=== PATIENT | female | born 1945 | race Caucasian/White ===

== ENCOUNTER 2021-04-07 15:42 | Inpatient (IN) ==
[2021-04-07] MEDS ORDERED: dexAMETHasone**PF** 10 MG/ML VIAL IV ONE (16:09)
--- NOTE | 2021-04-07 16:16 | Emergency Department Note ---
Impression & Plan 2019 novel coronavirus-infected pneumonia (NCIP), Hypoxia, Weakness, Chest pain ED Provider Note Provider: Jimbo Edward MD DATE OF SERVICE: 04/07/2021 CHIEF COMPLAINT: Covid, shortness of breath, weakness, chest pain HISTORY OF PRESENT ILLNESS: Patient is a 75-year-old female history of hyp ertension presenting via ambulance from her home today with report of increasing shortness of breath weakness and 3-4 out of 10 chest pain. Some weakness and shortness of breath symptoms started on April 04 she tested positive at urgent care for Covid. She is unvaccinated for Covid. Patient denies recent travel. She states she has had decreased appetite but has been doing fluids. Her friend she lives with has been well as he is vaccinated and giving her some [id number] medicines to try to help. She states has been increasingly weak and short of breath. Ambulance started her on oxygen given hypoxia noted for them. Patient is not normally on oxygen. No syncope or falls reported although patient states she felt a bit lightheaded particularly with movement. REVIEW OF SYSTEMS: A total of 10 review of systems was obtained and negative except as stated above in the HPI. PAST MEDICAL HISTORY: As noted above MEDICATIONS: Reviewed home medications SOCIAL HISTORY: Very distant former smoker PHYSICAL EXAM: GENERAL: alert and oriented in no acute distress seated in wheelchair appears fatigued Head: normocephalic and atraumatic EYES: No injection, discharge or icterus. NECK: Trachea midline. Supple. ENT: Mucous membranes pink and moist. LUNGS: Airway patent. No retractions however some tachypnea noted. Coarse breath sounds. HEART: Regular rate and rhythm. No chest wall tenderness ABDOMEN: Soft and non-tender, without guarding or rebound. SKIN: Acyanotic, warm, dry, without rashes EXTREMITIES: Without significant tenderness or deformity 1+ bilateral lower extr emity edema. NEUROLOGICAL: No focal deficits. No aphasia. No facial droop or slurred speech. EK bpm normal sinus rhythm with sinus arrhythmia. No PVC or PAC. No acute ST segment elevation. Some nonspecific inferior slight ST depression noted. QTc 435. CONTINUOUS CARDIAC MONITORING: was ordered and showed a heart rate of 70s-90s bpm in normal sinus rhythm Patient's laboratory studies and imaging reviewed. Differential includes Infection, dehydration, metabolic abnormality, hypo/hyperg lycemia, electrolyte disturbance, anemia, hypoxia, cardiac sources, intracerebral event, toxicologic, neurologic, as well as other pathologies. IMPRESSION/MEDICAL DECISION MAKING: Patient unvaccinated tested positive for Covid 3 days ago. Symptoms started 3 days ago now with worsening shortness of breath weakness and chest pain. New oxygen requirement. Feels lightheaded. Initially seen in [place] due to volume and acuity in emergency department secondary to the pandemic. Discussed with charge need for rapid placement given her oxygen requirements and fatigue. EKG without STEMI but some nonspecific lateral T wave changes. Doubt ACS question component of demand from her hypoxia. Chest x-ray if multifocal inflammatory changes consistent with viral pneumonia per radiology. Covid test is positive. No evidence of elevated troponin and the patient with minimal chest pain at this time. Patient is feeling somewhat cold and given blankets but is afebrile here. CRP significantly elevated consistent with inflammatory state from Covid. Again did receive dexamethasone given her hypoxia and the Covid. Creatinine of 1.47 unclear what her baseline is. Wish to avoid fluid overload given Covid stage so we will encourage oral hydration. Slight AST elevation consistent with viral Covid. Discussed with the patient hospitalist contacted for further care here at the hospital. DIAGNOSIS: COVID-19 pneumonia, hypoxia, chest pain DISPOSITION: Hospitalist will evaluate Patient was agreeable with this plan. 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 Beliefs That Will Affect Care: None Current Living Situation: Spouse Other Information That Helps Us Care for You: No Feels Safe at Home: Yes Safety Concerns: Feels Safe At This Time Assistive Devices: Denture - Upper, Denture - Lower and Glasses Allergies Allergies Allergy/AdvReac Type Severity Reaction Status Date / Time No Known Allergies Allergy Unverified 04/07/21 17:46 Home Meds Home Medications Medication Instructions Recorded Confirmed lisinopril 20 1 tab PO BID 04/07/21 04/07/21 mg-hydrochlorothiazide 12.5 mg tablet Results & Data (ED) Vital Signs Vital Signs - 24 hr 04/07/21 15:47 04/07/21 16:54 04/07/21 17:04 Temperature 36.5 C Temperature Source Temporal Artery Scan Pulse Rate 99 H 74 82 Pulse Rate [Left Radial] 74 Pulse Rate from SpO2 Sensor 82 Pulse Rhythm [Left Radial] Regular Pulse Strength [Left Radial] Normal Respiratory Rate 24 22 29 H Respiratory Effort / Characteristics Non-Labored Respiratory Depth Normal Respiratory Pattern Regular Blood Pressure 102/64 Blood Pressure [Left Arm] Blood Pressure Mean 76 Blood Pressure Mean [Left Arm] Blood Pressure Position [Left Arm] Pulse Oximetry 93 97 94 Oxygen Delivery Method Nasal Cannula Nasal Cannula Oxygen Flow Rate 3 4 Sepsis New/Unexplained Change in Mental Status No Sepsis Action Taken by Nursing No Action Required 04/07/21 17:10 04/07/21 17:20 04/07/21 17:30 Temperature Temperature Source Pulse Rate 85 78 81 Pulse Rate [Left Radial] Pulse Rate from SpO2 Sensor 85 80 83 Pulse Rhythm [Left Radial] Pulse Strength [Left Radial] Respiratory Rate 17 30 H 31 H Respiratory Effort / Characteristics Respiratory Depth Respiratory Pattern Blood Pressure Blood Pressure [Left Arm] Blood Pressure Mean Blood Pressure Mean [Left Arm] Blood Pressure Position [Left Arm] Pulse Oximetry 97 93 96 Oxygen Delivery Method Oxygen Flow Rate Sepsis New/Unexplained Change in Mental Status Sepsis Action Taken by Nursing 04/07/21 17:40 04/07/21 17:50 04/07/21 18:00 Temperature Temperature Source Pulse Rate 77 77 78 Pulse Rate [Left Radial] 63 Pulse Rate from SpO2 Sensor 78 77 78 Pulse Rhythm [Left Radial] Regular Pulse Strength [Left Radial] Normal Respiratory Rate 24 21 29 H Respiratory Effort / Characteristics Non-Labored Respiratory Depth Normal Respiratory Pattern Regular Blood Pressure Blood Pressure [Left Arm] 145/74 H Blood Pressure Mean Blood Pressure Mean [Left Arm] 97 Blood Pressure Position [Left Arm] Lying Pulse Oximetry 95 97 93 Oxygen Delivery Method Room Air Oxygen Flow Rate Sepsis New/Unexplained Change in Mental Status Sepsis Action Taken by Nursing Laboratory Data Result diagrams: 04/07/21 16:57 04/07/21 16:57 Lab Results 04/07/21 04/07/21 04/07/21 Range/Units 16:40 16:57 16:57 WBC 6.01 (4.8-10.8) K/uL RBC 4.76 (4.2-5.4) M/uL Hgb 14.9 (12.0-16.0) g/dL Hct 43.2 (37-47) % MCV 90.8 (80-100) fL MCH 31.3 (25-34) pg MCHC 34.5 (32-36) g/dL RDW Std Deviation 59.9 H (36.4-46.3) fL RDW Coeff of Marlene 17.7 H (11.5-14.5) % Plt Count 235 (130-400) K/uL MPV 10.7 H (7.4-10.4) fL Immature Gran % (Auto) 0.5 % Neut % (Auto) 85.3 % Lymph % (Auto) 8.0 % [place] % (Auto) 6.0 % Eos % (Auto) 0.0 % Baso % (Auto) 0.2 % Neut # (Auto) 5.13 (1.4-6.5) K/uL Lymph # (Auto) 0.48 L (1.2-3.4) K/uL [place] # (Auto) 0.36 (0.11-0.59) K/uL Eos # (Auto) 0.00 (0-0.5) K/uL Baso # (Auto) 0.01 (0-0.2) K/uL Immature Gran # (Auto) 0.03 H (0.00-0.02) K/uL PT 9.8 (9.0-12.0) Seconds INR 1.0 (0.9-1.1) Sodium (136-145) mmol/L Potassium (3.5-5.1) mmol/L Chloride (98-107) mmol/L Carbon Dioxide (21-32) mmol/L Anion Gap (3-11) BUN (7-18) mg/dl Creatinine (0.6-1.2) mg/dl Est Cr Clr Drug Dosing Est GFR ( Amer) ml/min Est GFR (Non-Af Amer) ml/min BUN/Creatinine Ratio (10-20) Glucose (70-99) mg/dl Calcium (8.5-10.1) mg/dl Total Bilirubin (0.2-1) mg/dl AST (15-37) U/L ALT (12-78) Alkaline Phosphatase (45-117) U/L Troponin I (0-0.045) ng/ml C-Reactive Protein (0-0.29) mg/dl Total Protein (6.4-8.2) gm/dl Albumin (3.4-5.0) gm/dl Globulin (2.5-4.0) gm/dl Albumin/Globulin Ratio (0.9-2) SARS-CoV-2, RNA, NAAT POSITIVE A* (NEGATIVE) 04/07/21 Range/Units 16:57 WBC (4.8-10.8) K/uL RBC (4.2-5.4) M/uL Hgb (12.0-16.0) g/dL Hct (37-47) % MCV (80-100) fL MCH (25-34) pg MCHC (32-36) g/dL RDW Std Deviation (36.4-46.3) fL RDW Coeff of Marlene (11.5-14.5) % Plt Count (130-400) K/uL MPV (7.4-10.4) fL Immature Gran % (Auto) % Neut % (Auto) % Lymph % (Auto) % [place] % (Auto) % Eos % (Auto) % Baso % (Auto) % Neut # (Auto) (1.4-6.5) K/uL Lymph # (Auto) (1.2-3.4) K/uL [place] # (Auto) (0.11-0.59) K/uL Eos # (Auto) (0-0.5) K/uL Baso # (Auto) (0-0.2) K/uL Immature Gran # (Auto) (0.00-0.02) K/uL PT (9.0-12.0) Seconds INR (0.9-1.1) Sodium 137 (136-145) mmol/L Potassium 3.6 (3.5-5.1) mmol/L Chloride 106 (98-107) mmol/L Carbon Dioxide 23 (21-32) mmol/L Anion Gap 8.0 (3-11) BUN 43 H (7-18) mg/dl Creatinine 1.47 H (0.6-1.2) mg/dl Est Cr Clr Drug Dosing Not Reportable Est GFR ( Amer) 40.3 ml/min Est GFR (Non-Af Amer) 34.8 ml/min BUN/Creatinine Ratio 29.5 H (10-20) Glucose 129 H (70-99) mg/dl Calcium 9.2 (8.5-10.1) mg/dl Total Bilirubin 0.6 (0.2-1) mg/dl AST 68 H (15-37) U/L ALT 36 (12-78) Alkaline Phosphatase 81 (45-117) U/L Troponin I < 0.015 (0-0.045) ng/ml C-Reactive Protein 21.60 H (0-0.29) mg/dl Total Protein 8.1 (6.4-8.2) gm/dl Albumin 2.9 L (3.4-5.0) gm/dl Globulin 5.2 H (2.5-4.0) gm/dl Albumin/Globulin Ratio 0.6 L (0.9-2) SARS-CoV-2, RNA, NAAT (NEGATIVE) Administered Medications Acetaminophen (Acetaminophen 325 Mg Tab) 650 mg PO Q4H PRN PRN Reason: Pain or Fever Stop: 05/07/21 21:06 Last Admin: 04/07/21 21:41 Dose: 650 mg Documented by: [id number] Heparin Sodium (Porcine) (Heparin Sod 5,000 Unit/0.5 Ml Vial) 5,000 units SQ Q8 SULEMA Stop: 05/07/21 21:59 Last Admin: 04/07/21 22:02 Dose: 5,000 units Documented by: [id number] Sodium Chloride (Nss 1000ml) 1,000 mls @ 100 mls/hr IV .Q10H SULEMA Stop: 05/07/21 21:06 Last Admin: 04/07/21 21:40 Dose: 100 mls/hr Documented by: [id number] Sodium Chloride (Sodium Chloride 0.9% 10ml Flush) 30 ml IV Q24H SULEMA Stop: 04/11/21 22:01 Last Admin: 04/07/21 21:40 Dose: 30 ml Documented by: [id number] Discontinued Medications Dexamethasone Sodium Phosphate (DexamethasonePf 10 Mg/Ml Vial) 6 mg IV NOW ONE Stop: 04/07/21 16:10 Last Admin: 04/07/21 16:59 Dose: 6 mg Documented by: [id number] Remdesivir 200 mg/ Sodium (Chloride) 250 mls @ 125 mls/hr IV ONE STA; Protocol Stop: 04/07/21 20:08 Last Infusion: 04/07/21 21:40 Dose: 0 mls/hr Documented by: [id number] Admin: 04/07/21 18:58 Dose: 125 mls/hr Documented by: [id number] Imaging Data Radiologist's Impression: Chest X-Ray 04/07/21 16:09 XR chest 1V portable HISTORY: 75 years-old Female Dyspnea, COVID, hypoxia acute shortness of breath with hypoxia COMPARISON: None TECHNIQUE: Portable AP view of the chest FINDINGS: Cardiac silhouette is enlarged. No pneumothorax or large pleural effusion. Mixed interstitial and alveolar opacities, left greater than right. Bones appear grossly intact. IMPRESSION: Multifocal bilateral airspace opacities are suggestive of viral pneumonia. ACT 112: Negative or not required by law. The above report was generated using voice recognition software. It may contain grammatical, syntax or spelling errors. Electronically signed by: Aashish Day M.D. 04/07/2021 4:51 PM Discharge Plan Visit Data Chief Complaint: Respiratory Problems Stated Complaint: SOB, HEADACHE, BODY ACHES, COVID + ED Provider: Jimbo Edward Discharge Problem: 2019 novel coronavirus-infected pneumonia (NCIP), Hypoxia, Weakness, Chest pain Patient Disposition: Admitted As Inpatient Discharge Instructions Interventions: ED Discharge Assessment Last Done: 04/07/21 20:14
--- NOTE | 2021-04-07 16:52 | XRay Report ---
XR chest 1V portable HISTORY: 75 years-old Female Dyspnea, COVID, hypoxia acute shortness of breath with hypoxia COMPARISON: None TECHNIQUE: Portable AP view of the chest FINDINGS: Cardiac silhouette is enlarged. No pneumothorax or large pleural effusion. Mixed interstitial and olvin eolar opacities, left greater than right. Bones appear grossly intact. IMPRESSION: Multifocal bilateral airspace opacities are suggestive of viral pneumonia. ACT 112: Negative or not required by law. The above report was generated using voice recognition software. It may contain grammatical, syntax o r spelling errors. Electronically signed by: Aashish Day M.D. 04/07/2021 4:51 PM
[2021-04-07 17:10] LABS: Prothrombin Time 9.8 Seconds (9.0-12.0)
[2021-04-07 17:19] LABS: Alanine Aminotransferase 36 (12-78); Albumin Level 2.9 gm/dl (3.4-5.0); Aspartate Aminotransferase 68 U/L (15-37); BUN Creatinine Ratio 29.5 (10-20); Blood Urea Nitrogen 43 mg/dl (7-18); Calcium 9.2 mg/dl (8.5-10.1); Carbon Dioxide 23 mmol/L (21-32); Chloride 106 mmol/L (98-107); Est GFR (African American) 40.3 ml/min; Est GFR (Non-African American) 34.8 ml/min; Glucose 129 mg/dl (70-99); Potassium 3.6 mmol/L (3.5-5.1); Sodium 137 mmol/L (136-145)
[2021-04-07 17:23] LABS: Hematocrit (blood only) 43.2 % (37-47); Hemoglobin 14.9 g/dL (12.0-16.0); Mean Corpuscular Hemoglobin 31.3 pg (25-34); Mean Corpuscular Hgb Conc 34.5 g/dL (32-36); Mean Corpuscular Volume 90.8 fL (80-100); Mean Platelet Volume 10.7 fL (7.4-10.4); Platelet Count 235 K/uL (130-400); RDW Coefficient of Variation 17.7 % (11.5-14.5); RDW Standard Deviation 59.9 fL (36.4-46.3); Red Blood Count 4.76 M/uL (4.2-5.4); White Blood Count 6.01 K/uL (4.8-10.8)
[2021-04-07 17:24] LABS: Basophils # (auto) 0.01 K/uL (0-0.2); Basophils % (auto) 0.2 %; Immature Granulocytes # (auto) 0.03 K/uL (0.00-0.02); Immature Granulocytes % (auto) 0.5 %; Lymphocytes # (auto) 0.48 K/uL (1.2-3.4); Monocytes # (auto) 0.36 K/uL (0.11-0.59); Neutrophils # (auto) 5.13 K/uL (1.4-6.5); Neutrophils % (auto) 85.3 %
[2021-04-07 17:27] LABS: Albumin Globulin Ratio 0.6 (0.9-2); Alkaline Phosphatase 81 U/L (45-117); Bilirubin,Total 0.6 mg/dl (0.2-1); Globulin 5.2 gm/dl (2.5-4.0); Total Protein 8.1 gm/dl (6.4-8.2); Troponin I < 0.015 ng/ml (0-0.045)
--- NOTE | 2021-04-07 18:06 | History & Physical Report ---
Date of Service April 07, 2021 Assessment & Plan (1) 2019 novel coronavirus-infected pneumonia (NCIP): Plan: Admit to Covid isolation unit Patient was given dexamethasone the emergency room, continued 6 mg IV daily As needed albuterol treatments If LFTs are normal, patient is a candidate for remdesivir will start loading dose today Continue O2 support as needed, currently on 4 L DVT prophylaxis with heparin Eventual PT/OT evaluation when better (2) HTN (hypertension): Plan: Blood pressure is low, will hold patient's Zestoretic for now. Can be restarted if patient's blood pressure worsens (3) LORI (acute kidney injury): Plan: Likely secondary to prerenal azotemia We will slowly hydrate with normal saline Patient is free to take p.o.'s as tolerated Off of CAYETANO inhibitor as noted above until renal function improves History of Present Illness Chief Complaint: weakness/SOB Primary Care Provider: Patricia Tony This is a 75-year-old female with past medical history of hypertension that presents today complaining weakness shortness of breath. Patient is a good historian but she appears very fatigued and a little short of breath which limits history. Patient tells me that on 04/04, she started having some flulike symptoms. These included generalized myalgias and weakness. She had little appetite. She did have some mild cough. Her daughter brought her to urgent care where she was found to be Covid positive. She tells me that no other treatment was prescribed and the patient stayed home over the next 2 days. Unfortunately, symptoms continue to worsen. This morning, she woke up and was extremely weak and had worsening shortness of breath. At that point EMS was called and the patient was brought to the emergency room for further evaluation. Patient is Covid positive here in the ER. She admits to me that she is unvaccinated. Recorded vital signs appear to be stable the patient is afebrile. She is noted to be 93% on 3L presentation. Patient is now being admitted for further treatment of Covid pneumonia. Allergies Allergy/AdvReac Type Severity Reaction Status Date / Time No Known Allergies Allergy Unverified 04/07/21 17:46 Home Medications Medication Instructions Recorded Confirmed Type lisinopril 20 1 tab PO BID 04/07/21 04/07/21 History mg-hydrochlorothiazide 12.5 mg tablet Past Med/Surg History Social History Smoking Status: Former smoker Preferred Language: Maldivian Feels Safe at Home: Yes Review of Systems Constitutional: + fever, + chills, + body aches, + fatigue, + malaise, + weakness and + anorexia; no weight loss and no weight gain Eyes: as per Subjective / HPI Respiratory: + cough and + chest congestion; no dyspnea and no dyspnea on exertion Cardiovascular: no chest pain, no orthopnea, no palpitations, no lightheadedness and no edema Gastrointestinal: no abdominal pain, no nausea, no vomiting, no constipation and no diarrhea/loose stools Genitourinary: no dysuria, no difficulty urinating, no urinary frequency, no urinary hesitancy, no urinary urgency and no flank pain Musculoskeletal: no back pain, no neck pain, no joint pain, no stiffness and no myalgia Integumentary: no rash Neurologic: no gait abnormality, no unsteadiness, no falls and no generalized weakness Physical Exam Constitutional: + ill appearing and cooperative; no acute distress Neck: trachea midline, no thyromegaly Respiratory: normal respiratory effort Auscultation: + diminished lung sounds; no crackles, no rales, no rhonchi and no wheezes Cardiovascular: Rate/Rhythm: regular rate and regular rhythm Heart Sounds: normal S1 and normal S2 Gastrointestinal (Abdomen): Inspection/Auscultation: abdomen normal to inspection Percussion/Palpation: abdomen soft; abdomen nontender, no guarding, abdomen not rigid and no hepatosplenomegaly Skin: no rashes, warm and dry Results & Data Results & Data ([facility]) Vital Signs (Past 12 Hours) Vital Signs Temp Pulse Pulse Resp BP Pulse Ox 04/07/21 16:54 74 74 22 97 04/07/21 15:47 36.5 C 99 H 24 102/64 93 Laboratory Results Laboratory Results WBC 6.01 K/uL (4.8-10.8) 04/07/21 16:57 RBC 4.76 M/uL (4.2-5.4) 04/07/21 16:57 Hgb 14.9 g/dL (12.0-16.0) 04/07/21 16:57 Hct 43.2 % (37-47) 04/07/21 16:57 MCV 90.8 fL (80-100) 04/07/21 16:57 MCH 31.3 pg (25-34) 04/07/21 16:57 MCHC 34.5 g/dL (32-36) 04/07/21 16:57 RDW Std Deviation 59.9 fL (36.4-46.3) H 04/07/21 16:57 RDW Coeff of Marlene 17.7 % (11.5-14.5) H 04/07/21 16:57 Plt Count 235 K/uL (130-400) 04/07/21 16:57 MPV 10.7 fL (7.4-10.4) H 04/07/21 16:57 Immature Gran % (Auto) 0.5 % 04/07/21 16:57 Neut % (Auto) 85.3 % 04/07/21 16:57 Lymph % (Auto) 8.0 % 04/07/21 16:57 [place] % (Auto) 6.0 % 04/07/21 16:57 Eos % (Auto) 0.0 % 04/07/21 16:57 Baso % (Auto) 0.2 % 04/07/21 16:57 Neut # (Auto) 5.13 K/uL (1.4-6.5) 04/07/21 16:57 Lymph # (Auto) 0.48 K/uL (1.2-3.4) L 04/07/21 16:57 [place] # (Auto) 0.36 K/uL (0.11-0.59) 04/07/21 16:57 Eos # (Auto) 0.00 K/uL (0-0.5) 04/07/21 16:57 Baso # (Auto) 0.01 K/uL (0-0.2) 04/07/21 16:57 Immature Gran # (Auto) 0.03 K/uL (0.00-0.02) H 04/07/21 16:57 PT 9.8 Seconds (9.0-12.0) 04/07/21 16:57 INR 1.0 (0.9-1.1) 04/07/21 16:57 Sodium 137 mmol/L (136-145) 04/07/21 16:57 Potassium 3.6 mmol/L (3.5-5.1) 04/07/21 16:57 Chloride 106 mmol/L (98-107) 04/07/21 16:57 Carbon Dioxide 23 mmol/L (21-32) 04/07/21 16:57 Anion Gap 8.0 (3-11) 04/07/21 16:57 BUN 43 mg/dl (7-18) H 04/07/21 16:57 Creatinine 1.47 mg/dl (0.6-1.2) H 04/07/21 16:57 Est Cr Clr Drug Dosing Not Reportable 04/07/21 16:57 Est GFR ( Amer) 40.3 ml/min 04/07/21 16:57 Est GFR (Non-Af Amer) 34.8 ml/min 04/07/21 16:57 BUN/Creatinine Ratio 29.5 (10-20) H 04/07/21 16:57 Glucose 129 mg/dl (70-99) H 04/07/21 16:57 Calcium 9.2 mg/dl (8.5-10.1) 04/07/21 16:57 Total Bilirubin 0.6 mg/dl (0.2-1) 04/07/21 16:57 AST 68 U/L (15-37) H 04/07/21 16:57 ALT 36 (12-78) 04/07/21 16:57 Alkaline Phosphatase 81 U/L (45-117) 04/07/21 16:57 Troponin I < 0.015 ng/ml (0-0.045) 04/07/21 16:57 C-Reactive Protein 21.60 mg/dl (0-0.29) H 04/07/21 16:57 Total Protein 8.1 gm/dl (6.4-8.2) 04/07/21 16:57 Albumin 2.9 gm/dl (3.4-5.0) L 04/07/21 16:57 Globulin 5.2 gm/dl (2.5-4.0) H 04/07/21 16:57 Albumin/Globulin Ratio 0.6 (0.9-2) L 04/07/21 16:57 SARS-CoV-2, RNA, NAAT POSITIVE (NEGATIVE) A* 04/07/21 16:40 Impressions Chest X-Ray 04/07/21 16:09 XR chest 1V portable HISTORY: 75 years-old Female Dyspnea, COVID, hypoxia acute shortness of breath with hypoxia COMPARISON: None TECHNIQUE: Portable AP view of the chest FINDINGS: Cardiac silhouette is enlarged. No pneumothorax or large pleural effusion. Mixed interstitial and alveolar opacities, left greater than right. Bones appear grossly intact. IMPRESSION: Multifocal bilateral airspace opacities are suggestive of viral pneumonia. ACT 112: Negative or not required by law. The above report was generated using voice recognition software. It may contain grammatical, syntax or spelling errors. Electronically signed by: Aashish Day M.D. 04/07/2021 4:51 PM PG Care Time/CCT Total # of Minutes Spent Total Time Spent with Patient: Total time spent is greater than 50% in coordination of care (as documented) at patient's floor/unit and/or counseling patient: Coding Level of Care Code 70801 Initial Inpt Care Lvl 3 Diagnoses 2019 novel coronavirus-infected pneumonia (NCIP) U07.1; J12.82 HTN (hypertension) I10 LORI (acute kidney injury) N17.9
[2021-04-07] MEDS ORDERED: REMDESIVIR 200 MG in SODIUM CHLORIDE 0.9% 210 ML IV STA (18:09)
[2021-04-07] MEDS ORDERED: ONDANSETRON INJ 2 MG/ML 2 ML VIAL IV PRN (21:07)
[2021-04-07] MEDS: SODIUM CHLORIDE 0.9% 1000ML 1,000 ML IV SCH (21:40)
[2021-04-07] MEDS: SODIUM CHLORIDE 0.9% 10ML FLUSH IV SCH (21:40)
[2021-04-07] MEDS: ACETAMINOPHEN 325 MG TAB PO PRN (21:41)
[2021-04-07] MEDS: HEPARIN SOD 5,000 UNIT/0.5 ML VIAL SQ SCH (22:02)
[2021-04-08 02:39] LABS: Appearance Urine Cloudy (Clear); Bilirubin Urine 1+ (Negative); Blood Urine 1+ (Negative); Color Urine Dark Yellow; Epithelial Cell Urine Auto 20-30 /lpf (0-5); Glucose Urine UA Negative (Negative); Ketones Urine Trace (Negative); Leukocyte Esterase Urine 2+ (Negative); Nitrite Urine Negative (Negative); Protein Urine 2+ (Negative); Specific Gravity Urine 1.025 (1.000-1.030); Urobilinogen Urine Negative (Negative); WBC Urine Automated >30 /hpf (0-5)
[2021-04-08 02:49] LABS: Bacteria Urine Automated 4+ (Negative)
[2021-04-08] MEDS: HEPARIN SOD 5,000 UNIT/0.5 ML VIAL SQ SCH ×3 (06:15→20:42)
[2021-04-08 07:00] LABS: Basophils # (auto) 0.01 K/uL (0-0.2); Basophils % (auto) 0.4 %; Hematocrit (blood only) 39.6 % (37-47); Hemoglobin 13.4 g/dL (12.0-16.0); Immature Granulocytes # (auto) 0.05 K/uL (0.00-0.02); Lymphocytes # (auto) 0.46 K/uL (1.2-3.4); Lymphocytes % (auto) 18.3 %; Mean Corpuscular Hemoglobin 30.6 pg (25-34); Mean Corpuscular Hgb Conc 33.8 g/dL (32-36); Mean Corpuscular Volume 90.4 fL (80-100); Mean Platelet Volume 10.5 fL (7.4-10.4); Monocytes # (auto) 0.17 K/uL (0.11-0.59); Monocytes % (auto) 6.8 %; Neutrophils # (auto) 1.82 K/uL (1.4-6.5); Neutrophils % (auto) 72.5 %; Platelet Count 199 K/uL (130-400); RDW Coefficient of Variation 17.9 % (11.5-14.5); RDW Standard Deviation 59.5 fL (36.4-46.3); Red Blood Count 4.38 M/uL (4.2-5.4); White Blood Count 2.51 K/uL (4.8-10.8)
[2021-04-08 07:23] LABS: Albumin Level 2.2 gm/dl (3.4-5.0); BUN Creatinine Ratio 36.1 (10-20); Calcium 8.5 mg/dl (8.5-10.1); Creatinine Clr Calc Pharmacy 47.5 ml/min; Magnesium 2.5 mg/dl (1.8-2.4); Potassium 3.5 mmol/L (3.5-5.1)
[2021-04-08 07:35] LABS: Albumin Globulin Ratio 0.5 (0.9-2); Bilirubin,Total 0.5 mg/dl (0.2-1); Globulin 4.5 gm/dl (2.5-4.0); Total Protein 6.7 gm/dl (6.4-8.2)
[2021-04-08] MEDS: dexAMETHasone 6 MG in SYRINGE 0 ML IV SCH (08:34)
[2021-04-08] MEDS: SODIUM CHLORIDE 0.9% 1000ML 1,000 ML IV SCH (09:22)
[2021-04-08] MEDS: cefTRIAXone SODIUM 2,000 MG in DEXTROSE 5% 50 ML IV SCH (10:25)
[2021-04-08] MEDS: FAMOTIDINE 20 MG TAB PO SCH ×2 (10:29→20:42)
[2021-04-08 15:36] LABS: C Reactive Protein 15.7 mg/dl (0-0.29)
[2021-04-08] MEDS ORDERED: MICONAZOLE NITRATE POWDER 43 GM EXT PRN (16:30)
--- NOTE | 2021-04-08 19:18 | Hospitalist Progress Note ---
Date of Service April 08, 2021 Assessment & Plan (1) 2019 novel coronavirus-infected pneumonia (NCIP): Plan: mod-severe disease, with marked elevation of CRP (>20) yesterday, and diffuse pneumonia clinically & radiographically. day #2 of IV dexamethasone 6mg daily. day #2 of 5 of Remdesivir. add flutter valve with incentive spirometry. side positioning and/or proning discussed with patient. I am concerned by her diffuse disease radiographically and the fact that she is only about 4 days into her illness. Has significant potential for worsening. I discussed with her that if she had escalating O2 requirements, and given her elevated CRP, she would be a candidate potentially for baricitinib treatment. I gave her the [facility] baricitinib handout in the event we need to initiate such. repeat labs including CRP in am. given her myalgias check a CPK in am. (2) Acute respiratory failure with hypoxia: Plan: 2nd COVID-19 pneumonia. see above in #1. stop fluids; maintain even I/O balance given her acute kidney injury, then ultimately net neg I/O balance once renal function normalizes. (3) HTN (hypertension): Plan: Holding CAYETANO-HCT combo pill given her LORI and recent low BP. If renal function improves and BPs rise then resume this medication. (4) LORI (acute kidney injury): Plan: Peak Cr 1.47. Now 1.2. Baseline 0.8/0.9. s/p IV fluids overnight. CAYETANO-HCT being held. stop fluids. bmp in am. cont to hold BP meds. (5) Morbid obesity with BMI of 40.0-44.9, adult: Plan: BMI 41 (6) Elevated AST (SGOT): Plan: 2nd COVID-19 infection. can't rule out rhabdomyolysis - thus, check CPK in am. repeat ast/alt in am. (7) Leukopenia: Plan: 2nd COVID-19 infection w/ resulting bone marrow suppression. trend cbc. (8) UTI (urinary tract infection): Plan: add rocephin 2gm IV daily. follow urine cx. (9) DVT prophylaxis: Plan: change heparin TID to lovenox 40mg BID. daughter Eun extensively updated by phone this evening Admission and Anticipated Discharge Date Admission Date: April 07, 2021 Subjective patient resting in bed upon my arrival easily awakens to her name being called she reports fatigue, weakness, cough, dyspnea on exertion, headache, and simply feeling poorly she had lost her taste/smell; taste modestly better today no fevers overnight denies chest pain Review of Systems Review of Systems: gen - no chills, appetite only slightly better today cv - no orthopnea pulm - no sputum production GI - no nausea or emesis; no abd pain Physical Exam Physical Exam: gen - obese, looks sickly, very tired, making a moaning sound periodically; attributes this to "a headache" mouth - MMM neck - no JVD heart - RRR, s1 s2, no murmur lungs - diffuse dry, fine rales b/l, extending more than 1/[address] up back; no increased work of breathing; occasional cough abd - soft NT ND BS+ ext - trace edema, pulses 2+ b/l psych - oriented x 3 skin - no rash Results & Data Results & Data ([facility]) Vital Signs (Past 12 Hours) Vital Signs Temp Pulse Resp BP Pulse Ox Pulse Ox Pulse Ox 04/08/21 19:14 36.6 C 75 20 137/75 96 04/08/21 15:00 36.8 C 83 18 149/79 H 94 04/08/21 11:30 36.7 C 66 20 135/67 90 04/08/21 11:24 88 L 90 04/08/21 09:26 90 04/08/21 07:44 36.8 C 69 24 132/78 94 Pulse Ox 04/08/21 19:14 04/08/21 15:00 04/08/21 11:30 04/08/21 11:24 78 L 04/08/21 09:26 04/08/21 07:44 Laboratory Results Laboratory Results - last 24 hr 04/08/21 04/08/21 04/08/21 02:20 06:26 06:26 WBC 2.51 L RBC 4.38 Hgb 13.4 Hct 39.6 MCV 90.4 MCH 30.6 MCHC 33.8 RDW Std Deviation 59.5 H RDW Coeff of Marlene 17.9 H Plt Count 199 MPV 10.5 H Immature Gran % (Auto) 2.0 Neut % (Auto) 72.5 Lymph % (Auto) 18.3 Coles % (Auto) 6.8 Eos % (Auto) 0.0 Baso % (Auto) 0.4 Neut # (Auto) 1.82 Lymph # (Auto) 0.46 L Coles # (Auto) 0.17 Eos # (Auto) 0.00 Baso # (Auto) 0.01 Immature Gran # (Auto) 0.05 H Sodium 140 Potassium 3.5 Chloride 110 H Carbon Dioxide 22 Anion Gap 8.0 BUN 44 H Creatinine 1.21 H Est Cr Clr Drug Dosing 47.5 Est GFR ( Amer) 51.0 Est GFR (Non-Af Amer) 44.0 BUN/Creatinine Ratio 36.1 H Glucose 128 H Calcium 8.5 Magnesium 2.5 H Total Bilirubin 0.5 AST 48 H ALT 29 Alkaline Phosphatase 67 C-Reactive Protein 15.70 H Total Protein 6.7 Albumin 2.2 L Globulin 4.5 H Albumin/Globulin Ratio 0.5 L Urine Color Dark Yellow Urine Appearance Cloudy A Urine pH 5.0 Ur Specific [place] 1.025 Urine Protein 2+ H Urine Glucose (UA) Negative Urine Ketones Trace H Urine Blood 1+ H Urine Nitrite Negative Urine Bilirubin 1+ H Urine Urobilinogen Negative Ur Leukocyte Esterase 2+ H Urine WBC (Auto) >30 H Urine RBC (Auto) 5-10 H U Hyaline Cast (Auto) 10-30 H U Epithel Cells (Auto) 20-30 H Urine Bacteria (Auto) 4+ H Granular Casts 5-10 H Urine Yeast Not Reportable PG Care Time/CCT Total # of Minutes Spent Total Time Spent with Patient: Total time spent is greater than 50% in coordination of care (as documented) at patient's floor/unit and/or counseling patient: Coding Level of Care Code 68659 Subseq Hosp Care Lvl 3 Diagnoses 2019 novel coronavirus-infected pneumonia (NCIP) U07.1; J12.82 HTN (hypertension) I10 LORI (acute kidney injury) N17.9 Acute respiratory failure with hypoxia J96.01 Morbid obesity with BMI of 40.0-44.9, adult E66.01; Z68.41 Leukopenia D72.819 UTI (urinary tract infection) N39.0 DVT prophylaxis Z29.9 Elevated AST (SGOT) R74.01
[2021-04-08] MEDS: REMDESIVIR 100 MG in SODIUM CHLORIDE 0.9% 230 ML IV SCH (19:46)
[2021-04-08] MEDS: SODIUM CHLORIDE 0.9% 10ML FLUSH IV SCH (20:52)
--- NOTE | 2021-04-08 21:34 | Electrocardiogram Report ---
Test Reason : Blood Pressure : / mmHG Vent. Rate : 087 BPM Atrial Rate : 087 BPM P-R Int : 146 ms QRS Dur : 074 ms QT Int : 362 ms P-R-T Axes : 033 -13 008 degrees QTc Int : 435 ms Normal sinus rhythm with sinus arrhythmia Nonspecific ST abnormality Abnormal ECG No previous ECGs available Confirmed by Dejuan Sexton ([id number]) on 04/08/2021 9:33:57 PM Referred By: REFERRED SELF Confirmed By:Dejuan Sexton
--- NOTE | 2021-04-08 21:36 | Electrocardiogram Report ---
Test Reason : Blood Pressure : / mmHG Vent. Rate : 085 BPM Atrial Rate : 085 BPM P-R Int : 138 ms QRS Dur : 072 ms QT Int : 374 ms P-R-T Axes : 015 -13 011 degrees QTc Int : 445 ms Normal sinus rhythm with sinus arrhythmia Nonspecific T wave abnormality When compared with ECG of 07-APR-2021 15:58, No significant change was found Confirmed by Dejuan Sexton ([id number]) on 04/08/2021 9:36:05 PM Referred By: REFERRED SELF Confirmed By:Dejuan Sexton
[2021-04-09 06:44] LABS: Hematocrit (blood only) 40.2 % (37-47); Hemoglobin 13.8 g/dL (12.0-16.0); Mean Corpuscular Hemoglobin 31.3 pg (25-34); Mean Corpuscular Hgb Conc 34.3 g/dL (32-36); Mean Corpuscular Volume 91.2 fL (80-100); Mean Platelet Volume 10.6 fL (7.4-10.4); Platelet Count 277 K/uL (130-400); RDW Coefficient of Variation 17.8 % (11.5-14.5); RDW Standard Deviation 60.6 fL (36.4-46.3); Red Blood Count 4.41 M/uL (4.2-5.4); White Blood Count 5.18 K/uL (4.8-10.8)
[2021-04-09 07:25] LABS: BUN Creatinine Ratio 34.3 (10-20); C Reactive Protein 9.23 mg/dl (0-0.29); Creatinine Clr Calc Pharmacy 48.7 ml/min; Est GFR (African American) 51.6 ml/min; Est GFR (Non-African American) 44.5 ml/min; Potassium 3.3 mmol/L (3.5-5.1)
[2021-04-09] MEDS: dexAMETHasone 6 MG in SYRINGE 0 ML IV SCH (08:21)
[2021-04-09] MEDS: ENOXAPARIN INJ 40 MG/0.4 ML SYR SQ SCH ×2 (08:21→20:42)
[2021-04-09] MEDS: FAMOTIDINE 20 MG TAB PO SCH ×2 (08:22→20:42)
[2021-04-09] MEDS: cefTRIAXone SODIUM 2,000 MG in DEXTROSE 5% 50 ML IV SCH (08:57)
[2021-04-09] MEDS ORDERED: BARICITINIB COMMUNICATION ONE (11:27)
[2021-04-09] MEDS: POTASSIUM CHLORIDE CRTAB 20 MEQ TABCR PO SCH ×2 (11:34→20:42)
--- NOTE | 2021-04-09 12:26 | Hospitalist Progress Note ---
Date of Service April 09, 2021 Assessment & Plan (1) 2019 novel coronavirus-infected pneumonia (NCIP): Plan: mod-severe disease, with marked elevation of CRP on admission and diffuse pneumonia radiographically. day #3 of IV dexamethasone 6mg daily. day #3 of 5 of Remdesivir. progressed to HFNC today, CRP is still high at 9, will add Baricitinib 2mg daily, day 1 add flutter valve with incentive spirometry. side positioning, place velásquez and give Lasix 20mg IV today she says she cannot lay prone CPK is only 143 this morning in regards to her myalgias (2) Acute respiratory failure with hypoxia: Plan: 2nd COVID-19 pneumonia. see above in #1. progressed to HFNC today, not surprised given the severity of her pneumonia discussed importance of proning as much as possible place velásquez and give lasix 20mg IV (3) HTN (hypertension): Plan: Holding CAYETANO-HCT combo pill given her LORI and recent low BP. BP remains low normal this morning (4) LORI (acute kidney injury): Plan: Peak Cr 1.47. Cr is 1.2 today, making urine, K is 3.3 LORI resolved (5) Morbid obesity with BMI of 40.0-44.9, adult: Plan: BMI 41 (6) Elevated AST (SGOT): Plan: 2nd COVID-19 infection. CPK normal (7) Leukopenia: Plan: 2nd COVID-19 infection w/ resulting bone marrow suppression. resolved, WBC is 5k (8) UTI (urinary tract infection): Plan: continue Rocephin 2gm IV daily. urine cx growing 100k GN bacilli (9) Hypokalemia: Plan: 3.3, add 20mEq BID, repeat BMP in AM (10) DVT prophylaxis: Plan: lovenox 40mg BID. Admission and Anticipated Discharge Date Admission Date: April 07, 2021 Subjective patient placed on HFNC this morning, 40L 100%, she failed oxy mask she has pursed lip breathing, tachypneic reviewed chart and reviewed labs, she is early in her illness, only day 5 according to start of symptoms K is 3.3, Cr 1.2, CRP coming down but still high at 9 discussed importance of laying prone, says she cannot do that at all, encouraged her to lay on her side then will place velásquez, give Lasix 20mg IV she is eating a little better, drinking fluids Review of Systems Review of Systems: All systems reviewed & are unremarkable except as noted in Subjective Constitutional: + fatigue and + weakness; no fever, no chills and no sweats Respiratory: + cough, + dyspnea and + dyspnea on exertion; no pain with cough and no sputum production Cardiovascular: no chest pain Gastrointestinal: no abdominal pain, no nausea, no vomiting, no constipation and no diarrhea/loose stools Physical Exam Physical Exam: General: well developed, obese female, ill appearing, mild distress Neck: supple, trachea midline, normal thyroid Lungs: clear to auscultation bilaterally, + tachypnea, + pursed lip breathing, + accessory muscle use, cannot speak in full sentences Heart: regular S1 and S2, no murmur, peripheral pulses normal, capillary refill normal, no edema Abdomen: soft, NT, ND, + BS, no hepatomegaly, normal to percussion Extremities: normal in appearance, no cyanosis, no petechiae, strength is 5/5 bilaterally Neuro: awake, cooperative, moves all extremities, no focal motor deficits, CN II-XII intact, sensation in extremities intact, normal speech Skin: warm, dry, no rash, normal turgor Psych: Awake, alert oriented x 3, euthymic affect Results & Data Results & Data ([facility]) Vital Signs (Past 12 Hours) Vital Signs Temp Pulse Pulse Resp BP BP Pulse Ox 04/09/21 10:57 36.9 C 71 20 118/74 98 04/09/21 10:06 69 22 96 04/09/21 07:24 36.9 C 78 20 166/82 H 96 04/09/21 07:00 73 04/09/21 03:29 71 04/09/21 03:09 36.9 C 76 20 141/96 H 94 Laboratory Results Laboratory Results - last 24 hr 04/08/21 04/09/21 04/09/21 06:26 06:21 06:21 WBC 5.18 RBC 4.41 Hgb 13.8 Hct 40.2 MCV 91.2 MCH 31.3 MCHC 34.3 RDW Std Deviation 60.6 H RDW Coeff of Marlene 17.8 H Plt Count 277 MPV 10.6 H Sodium 142 Potassium 3.3 L Chloride 111 H Carbon Dioxide 23 Anion Gap 8.0 BUN 41 H Creatinine 1.20 Est Cr Clr Drug Dosing 48.7 Est GFR ( Amer) 51.6 Est GFR (Non-Af Amer) 44.5 BUN/Creatinine Ratio 34.3 H Glucose 130 H Calcium 9.0 AST 44 H ALT 29 Total Creatine Kinase 143 C-Reactive Protein 15.70 H 9.23 H Medications Administered Current Inpatient Medications Acetaminophen (Acetaminophen 325 Mg Tab) 650 mg PO Q4H PRN PRN Reason: Pain or Fever Stop: 05/07/21 21:06 Last Admin: 04/07/21 21:41 Dose: 650 mg Documented by: Baricitinib (2mg Daily X 14 Days (Egfr 30-59 Ml/Min/1.73m2)) 2 mg PO DAILY [facility]; Protocol Stop: 04/23/21 11:59 Enoxaparin Sodium (Enoxaparin Inj 40 Mg/0.4 Ml Syr) 40 mg SQ BID [facility] Stop: 05/09/21 08:59 Last Admin: 04/09/21 08:21 Dose: 40 mg Documented by: Famotidine (Famotidine 20 Mg Tab) 20 mg PO BID [facility] Stop: 05/08/21 09:44 Last Admin: 04/09/21 08:22 Dose: 20 mg Documented by: Dexamethasone 6 mg/ Syringe 1.5 mls @ 1 mls/min IV DAILY [facility] Stop: 04/18/21 08:59 Last Admin: 04/09/21 08:21 Dose: 1 mls/min Documented by: Remdesivir 100 mg/ Sodium (Chloride) 250 mls @ 250 mls/hr IV Q24H [facility]; Protocol Stop: 04/11/21 20:59 Last Infusion: 04/08/21 20:52 Dose: Infused Documented by: Ceftriaxone Sodium 2,000 mg/ (Dextrose) 70 mls @ 100 mls/hr IV DAILY [facility]; Protocol Stop: 04/13/21 09:44 Last Infusion: 04/09/21 09:39 Dose: Infused Documented by: Miconazole Nitrate (Miconazole Nitrate Powder 43 Gm) 1 appln EXT BID PRN PRN Reason: Affected Skin Folds Stop: 05/08/21 16:29 Ondansetron HCl (Ondansetron Inj 2 Mg/Ml 2 Ml Vial) 4 mg IV Q6H PRN PRN Reason: Nausea Stop: 05/07/21 21:06 Potassium Chloride (Potassium Chloride Crtab 20 Meq Tabcr) 20 meq PO BID [facility] Stop: 05/09/21 11:29 Last Admin: 04/09/21 11:34 Dose: 20 meq Documented by: Sodium Chloride (Sodium Chloride 0.9% 10ml Flush) 30 ml IV Q24H [facility] Stop: 04/11/21 22:01 Last Admin: 04/08/21 20:52 Dose: 30 ml Documented by: PG Care Time/CCT Total # of Minutes Spent Total Time Spent with Patient: Total time spent is greater than 50% in coordination of care (as documented) at patient's floor/unit and/or counseling patient: Coding Level of Care Code 84898 Subseq Hosp Care Lvl 3 Diagnoses 2019 novel coronavirus-infected pneumonia (NCIP) U07.1; J12.82 Acute respiratory failure with hypoxia J96.01 HTN (hypertension) I10 LORI (acute kidney injury) N17.9 Morbid obesity with BMI of 40.0-44.9, adult E66.01; Z68.41 Elevated AST (SGOT) R74.01 Leukopenia D72.819 UTI (urinary tract infection) N39.0 DVT prophylaxis Z29.9 Hypokalemia E87.6
[2021-04-09] MEDS ORDERED: FUROSEMIDE INJ 20 MG/2 ML VIAL IV ONE (12:39)
[2021-04-09] MEDS ORDERED: guaiFENesin/CODEINE 100MG/10MG 5ML UDC PO PRN (12:40)
[2021-04-09] MEDS: 2mg Daily x 14 days (eGFR 30-59 mL/min/1.73m2) PO SCH (13:17)
[2021-04-09] MEDS: SODIUM CHLORIDE 0.9% 10ML FLUSH IV SCH (23:30)
[2021-04-09] MEDS: REMDESIVIR 100 MG in SODIUM CHLORIDE 0.9% 230 ML IV SCH (23:30)
[2021-04-10 07:40] LABS: BUN Creatinine Ratio 38.6 (10-20); Calcium 8.5 mg/dl (8.5-10.1); Creatinine Clr Calc Pharmacy 54.4 ml/min; Est GFR (African American) 58.6 ml/min; Est GFR (Non-African American) 50.5 ml/min; Magnesium 2.3 mg/dl (1.8-2.4); Potassium 4.1 mmol/L (3.5-5.1)
[2021-04-10 07:45] LABS: C Reactive Protein 4.22 mg/dl (0-0.29)
[2021-04-10] MEDS: dexAMETHasone 6 MG in SYRINGE 0 ML IV SCH (08:17)
[2021-04-10] MEDS: ENOXAPARIN INJ 40 MG/0.4 ML SYR SQ SCH ×2 (08:19→21:50)
[2021-04-10] MEDS: FAMOTIDINE 20 MG TAB PO SCH ×2 (08:19→21:50)
[2021-04-10] MEDS: POTASSIUM CHLORIDE CRTAB 20 MEQ TABCR PO SCH (08:19)
[2021-04-10] MEDS: 2mg Daily x 14 days (eGFR 30-59 mL/min/1.73m2) PO SCH (08:26)
[2021-04-10] MEDS: cefTRIAXone SODIUM 2,000 MG in DEXTROSE 5% 50 ML IV SCH (08:30)
[2021-04-10] MEDS ORDERED: FUROSEMIDE INJ 20 MG/2 ML VIAL IV ONE (10:20)
--- NOTE | 2021-04-10 10:20 | Hospitalist Progress Note ---
Date of Service April 10, 2021 Assessment & Plan (1) 2019 novel coronavirus-infected pneumonia (NCIP): Plan: mod-severe disease, with marked elevation of CRP on admission and diffuse pneumonia radiographically. day #4 of IV dexamethasone 6mg daily. day #4 of 5 of Remdesivir. added Baricitinib 2mg daily, day 2 today progressed to HFNC on 04/09/21 CRP coming down to 4 from 9 add flutter valve with incentive spirometry. side positioning, Lasix 20mg IV daily, good response and Cr stable she says she cannot lay prone (2) Acute respiratory failure with hypoxia: Plan: 2nd COVID-19 pneumonia. see above in #1. progressed to HFNC on 04/09/21, not surprised given the severity of her pneumonia discussed importance of proning as much as possible place velásquez and give lasix 20mg IV daily (3) HTN (hypertension): Plan: Holding CAYETANO-HCT combo pill given her LORI and recent low BP. BP remains low normal this morning (4) LORI (acute kidney injury): Plan: Peak Cr 1.47. Cr down to 1.0 today from 1.2, K stable at 4.1 LORI resolved (5) Morbid obesity with BMI of 40.0-44.9, adult: Plan: BMI 41 (6) Elevated AST (SGOT): Plan: 2nd COVID-19 infection. CPK normal (7) Leukopenia: Plan: 2nd COVID-19 infection w/ resulting bone marrow suppression. resolved (8) UTI (urinary tract infection): Plan: continue Rocephin 2gm IV daily. urine cx growing E coli that is sensitive to Rocephin 5-7 days total (9) Hypokalemia: Plan: 4.1, stop PO replacement for now (10) DVT prophylaxis: Plan: lovenox 40mg BID. Admission and Anticipated Discharge Date Admission Date: April 07, 2021 Subjective patient says she feels better today, she is still on 40L 100% but breathing easier eating better she complains that her nose is dry, sore, no bleeding CRP down to 4 from 9, Cr is stable no fever, no chest pain, nausea encouraged her to stay strong, will try to titrate down on oxygen requirements Review of Systems Review of Systems: All systems reviewed & are unremarkable except as noted in Subjective Respiratory: + cough, + dyspnea and + dyspnea on exertion Physical Exam Physical Exam: General: well developed, obese female, ill appearing, mild distress Neck: supple, trachea midline, normal thyroid Lungs: clear to auscultation bilaterally, + tachypnea, + pursed lip breathing, + accessory muscle use, cannot speak in full sentences Heart: regular S1 and S2, no murmur, peripheral pulses normal, capillary refill normal, no edema Abdomen: soft, NT, ND, + BS, no hepatomegaly, normal to percussion Extremities: normal in appearance, no cyanosis, no petechiae, strength is 5/5 bilaterally Neuro: awake, cooperative, moves all extremities, no focal motor deficits, CN II-XII intact, sensation in extremities intact, normal speech Skin: warm, dry, no rash, normal turgor Psych: Awake, alert oriented x 3, euthymic affect Results & Data Results & Data ([facility]) Vital Signs (Past 12 Hours) Vital Signs Temp Pulse Pulse Resp BP Pulse Ox 04/10/21 07:08 36.5 C 53 L 20 134/72 95 04/10/21 06:25 58 L 20 91 04/10/21 03:38 36.5 C 63 18 149/94 H 91 04/10/21 03:14 80 22 92 04/09/21 23:11 37.0 C 58 L 20 136/67 93 04/09/21 22:47 60 28 H 92 04/09/21 22:20 47 L Laboratory Results Laboratory Results - last 24 hr 04/10/21 05:49 Sodium 142 Potassium 4.1 D Chloride 112 H Carbon Dioxide 24 Anion Gap 6.0 BUN 42 H Creatinine 1.08 Est Cr Clr Drug Dosing 54.4 Est GFR ( Amer) 58.6 Est GFR (Non-Af Amer) 50.5 BUN/Creatinine Ratio 38.6 H Glucose 117 H Calcium 8.5 Magnesium 2.3 C-Reactive Protein 4.22 H Medications Administered Current Inpatient Medications Acetaminophen (Acetaminophen 325 Mg Tab) 650 mg PO Q4H PRN PRN Reason: Pain or Fever Stop: 05/07/21 21:06 Last Admin: 04/07/21 21:41 Dose: 650 mg Documented by: Baricitinib (2mg Daily X 14 Days (Egfr 30-59 Ml/Min/1.73m2)) 2 mg PO DAILY [facility]; Protocol Stop: 04/23/21 11:59 Last Admin: 04/10/21 08:26 Dose: 2 mg Documented by: Enoxaparin Sodium (Enoxaparin Inj 40 Mg/0.4 Ml Syr) 40 mg SQ BID [facility] Stop: 05/09/21 08:59 Last Admin: 04/10/21 08:19 Dose: 40 mg Documented by: Famotidine (Famotidine 20 Mg Tab) 20 mg PO BID [facility] Stop: 05/08/21 09:44 Last Admin: 04/10/21 08:19 Dose: 20 mg Documented by: Guaifenesin/Codeine Phosphate (Guaifenesin/Codeine 100mg/10mg 5ml Udc) 5 ml PO Q6H PRN PRN Reason: Cough Stop: 05/09/21 12:39 Dexamethasone 6 mg/ Syringe 1.5 mls @ 1 mls/min IV DAILY [facility] Stop: 04/18/21 08:59 Last Admin: 04/10/21 08:17 Dose: 1 mls/min Documented by: Remdesivir 100 mg/ Sodium (Chloride) 250 mls @ 250 mls/hr IV Q24H [facility]; Protocol Stop: 04/11/21 20:59 Last Infusion: 04/10/21 00:30 Dose: Infused Documented by: Ceftriaxone Sodium 2,000 mg/ (Dextrose) 70 mls @ 100 mls/hr IV DAILY [facility]; Protocol Stop: 04/13/21 09:44 Last Infusion: 04/09/21 09:39 Dose: Infused Documented by: Miconazole Nitrate (Miconazole Nitrate Powder 43 Gm) 1 appln EXT BID PRN PRN Reason: Affected Skin Folds Stop: 05/08/21 16:29 Ondansetron HCl (Ondansetron Inj 2 Mg/Ml 2 Ml Vial) 4 mg IV Q6H PRN PRN Reason: Nausea Stop: 05/07/21 21:06 Potassium Chloride (Potassium Chloride Crtab 20 Meq Tabcr) 20 meq PO BID [facility] Stop: 05/09/21 11:29 Last Admin: 04/10/21 08:19 Dose: 20 meq Documented by: Sodium Chloride (Sodium Chloride 0.9% 10ml Flush) 30 ml IV Q24H [facility] Stop: 04/11/21 22:01 Last Admin: 04/09/21 23:30 Dose: 30 ml Documented by: PG Care Time/CCT Total # of Minutes Spent Total Time Spent with Patient: Total time spent is greater than 50% in coordination of care (as documented) at patient's floor/unit and/or counseling patient: Coding Level of Care Code 44479 Subseq Hosp Care Lvl 3 Diagnoses 2019 novel coronavirus-infected pneumonia (NCIP) U07.1; J12.82 Acute respiratory failure with hypoxia J96.01 HTN (hypertension) I10 LORI (acute kidney injury) N17.9 Morbid obesity with BMI of 40.0-44.9, adult E66.01; Z68.41 Elevated AST (SGOT) R74.01 Leukopenia D72.819 UTI (urinary tract infection) N39.0 Hypokalemia E87.6 DVT prophylaxis Z29.9
[2021-04-10] MEDS ORDERED: SODIUM CHLORIDE 0.65% NA SOLN 45 ML (OCEAN) PRN (10:23)
[2021-04-10] MEDS: MUPIROCIN 2% OINT 22 GM TUBE EXT SCH ×2 (11:12→21:51)
--- NOTE | 2021-04-10 12:13 | XRay Report ---
XR chest 1V portable CLINICAL HISTORY: covid, hypoxia TECHNIQUE: Single frontal radiograph of the chest was obtained. Comparison: Comparison is made to chest one view 04/07/2021 FINDINGS: No lines and tubes are seen. The cardiomediastinal silhouette is normal. Multifocal airspace opacitie s are seen. No evidence of pleural effusion or pneumothorax. IMPRESSION: Multifocal airspace opacities may represent atelectasis, pneumonia, and/or aspiration. ACT 112: Negative or not required by law. Electronically signed by: Heriberto Camilo M.D. 04/10/2021 12:12 PM
[2021-04-10] MEDS: REMDESIVIR 100 MG in SODIUM CHLORIDE 0.9% 230 ML IV SCH (21:07)
[2021-04-10] MEDS: SODIUM CHLORIDE 0.9% 10ML FLUSH IV SCH (22:55)
[2021-04-11] MEDS ORDERED: FUROSEMIDE INJ 20 MG/2 ML VIAL IV SCH (09:00)
[2021-04-11] MEDS: cefTRIAXone SODIUM 2,000 MG in DEXTROSE 5% 50 ML IV SCH (09:42)
[2021-04-11] MEDS: dexAMETHasone 6 MG in SYRINGE 0 ML IV SCH (09:42)
[2021-04-11] MEDS: MUPIROCIN 2% OINT 22 GM TUBE EXT SCH ×2 (09:43→21:09)
[2021-04-11] MEDS: ENOXAPARIN INJ 40 MG/0.4 ML SYR SQ SCH ×2 (09:43→21:08)
[2021-04-11] MEDS: FAMOTIDINE 20 MG TAB PO SCH ×2 (09:43→21:08)
[2021-04-11] MEDS: 2mg Daily x 14 days (eGFR 30-59 mL/min/1.73m2) PO SCH (09:58)
[2021-04-11 10:18] LABS: Calcium 8.7 mg/dl (8.5-10.1); Creatinine Clr Calc Pharmacy 61.4 ml/min; Est GFR (African American) 67.5 ml/min; Est GFR (Non-African American) 58.3 ml/min
[2021-04-11] MEDS: REMDESIVIR 100 MG in SODIUM CHLORIDE 0.9% 230 ML IV SCH (19:32)
--- NOTE | 2021-04-11 20:58 | Hospitalist Progress Note ---
Date of Service April 11, 2021 Assessment & Plan (1) 2019 novel coronavirus-infected pneumonia (NCIP): Plan: severe disease, with marked elevation of CRP (>20) early in admission, and diffuse pneumonia clinically & radiographically. progressed from NC O2 up to large quantities of high-flow NC. at rest she is comfortable, fortunately, without distress. day #5 of IV dexamethasone 6mg daily. day #5 of 5 of Remdesivir. Cont flutter valve with incentive spirometry. The flutter valve was sitting in a bucket near the window - I had her do it to ensure good technique which she does. side positioning encouraged. She will not prone. Was a candidate for baricitinib treatment - day #3 of such. Using 2mg due to GFR <60. DVT proph - lovenox 40mg BID. (2) Acute respiratory failure with hypoxia: Plan: 2nd COVID-19 pneumonia. see above in #1. cont lasix IV to maintain net negative I/O balance. BMP am. wean FiO2 as tolerated. (3) HTN (hypertension): Plan: Holding CAYETANO-HCT combo pill given her LORI. If renal function improves and BPs rise then resume this medication. (4) LORI (acute kidney injury): Plan: Peak Cr 1.47. Now 0.9. Baseline 0.8/0.9. CAYETANO-HCTZ still being held. daily BMP. (5) Morbid obesity with BMI of 40.0-44.9, adult: Plan: BMI 41-42 (6) Elevated AST (SGOT): Plan: 2nd COVID-19 infection. repeat AST in am. recent CPK wnl. (7) Leukopenia: Plan: 2nd COVID-19 infection w/ resulting bone marrow suppression. resolved. (8) UTI (urinary tract infection): Plan: rocephin 2gm IV daily. 2nd to e.coli. can d/c rocephin, change to augmentin to complete course. (9) DVT prophylaxis: Plan: cont lovenox 40mg BID. daughter Eun extensively updated by phone this evening will ultimately need PT/OT when she can tolerate such Admission and Anticipated Discharge Date Admission Date: April 07, 2021 Subjective pt watching [employer] football upon arrival patient said very little today she c/o cough she c/o SAMANIEGO with minimal activity eating fine no chest pain no abd pain nursing reports that when she ambulated from the bed to the commode today she dropped her O2 sats to the 70s promptly she is not proning reports she can't lay on left hip due to pain tele overnight wnl Review of Systems Review of Systems: gen - no fevers or chills; weakness present CV - no chest pain; mild orthopnea pulm - minimal sputum GI - no N/V Physical Exam Physical Exam: gen - obese, NAD, no respiratory distress mouth - MMM neck - no JVD heart - RRR, s1 s2, no murmur lungs - dry, fine rales b/l - less than the last time I examined her; better airation than my previous exam; no wheeze abd - soft NT ND BS+ ext - trace-1+ edema, pulses 2+ b/l psych - oriented x 3 skin - no rash Results & Data Results & Data ([facility]) Vital Signs (Past 12 Hours) Vital Signs Temp Pulse Pulse Resp BP BP Pulse Ox 04/11/21 19:18 65 21 91 04/11/21 19:09 36.5 C 69 20 156/89 H 94 04/11/21 15:15 37.0 C 89 20 121/73 92 04/11/21 15:10 70 20 91 04/11/21 14:15 81 04/11/21 11:33 70 20 91 04/11/21 11:16 36.8 C 82 22 139/78 88 L Laboratory Results Laboratory Results - last 24 hr 04/11/21 04/11/21 04/11/21 09:03 11:05 18:40 Sodium 141 Potassium 3.8 Chloride 112 H Carbon Dioxide 24 Anion Gap 5.0 BUN 38 H Creatinine 0.96 Est Cr Clr Drug Dosing 61.4 Est GFR ( Amer) 67.5 Est GFR (Non-Af Amer) 58.3 BUN/Creatinine Ratio 39.0 H Glucose 86 Calcium 8.7 Stool Occult Bld Scrn Negative PG Care Time/CCT Total # of Minutes Spent Total Time Spent with Patient: Total time spent is greater than 50% in coordination of care (as documented) at patient's floor/unit and/or counseling patient: Coding Level of Care Code 42555 Subseq Hosp Care Lvl 3 Diagnoses 2019 novel coronavirus-infected pneumonia (NCIP) U07.1; J12.82 Acute respiratory failure with hypoxia J96.01 HTN (hypertension) I10 LORI (acute kidney injury) N17.9 Morbid obesity with BMI of 40.0-44.9, adult E66.01; Z68.41 Elevated AST (SGOT) R74.01 Leukopenia D72.819 UTI (urinary tract infection) N39.0 DVT prophylaxis Z29.9
[2021-04-11] MEDS: SODIUM CHLORIDE 0.9% 10ML FLUSH IV SCH (21:36)
[2021-04-12 07:03] LABS: Hematocrit (blood only) 40.2 % (37-47); Mean Corpuscular Hgb Conc 34.8 g/dL (32-36); Mean Corpuscular Volume 91.8 fL (80-100); Mean Platelet Volume 11.5 fL (7.4-10.4); Platelet Count 295 K/uL (130-400); RDW Coefficient of Variation 16.9 % (11.5-14.5); RDW Standard Deviation 56.6 fL (36.4-46.3); Red Blood Count 4.38 M/uL (4.2-5.4); White Blood Count 6.96 K/uL (4.8-10.8)
[2021-04-12 07:26] LABS: BUN Creatinine Ratio 31.8 (10-20); Calcium 8.5 mg/dl (8.5-10.1); Creatinine Clr Calc Pharmacy 63.2 ml/min; Est GFR (African American) 70.2 ml/min; Est GFR (Non-African American) 60.5 ml/min; Potassium 3.9 mmol/L (3.5-5.1)
[2021-04-12] MEDS: AMOXICILLIN/CLAVULANATE 875 MG TAB PO SCH ×2 (09:40→16:33)
[2021-04-12] MEDS: FUROSEMIDE 40 MG/4 ML VIAL IV SCH (09:41)
[2021-04-12] MEDS: FAMOTIDINE 20 MG TAB PO SCH ×2 (09:41→20:49)
[2021-04-12] MEDS: ENOXAPARIN INJ 40 MG/0.4 ML SYR SQ SCH ×2 (09:41→20:48)
[2021-04-12] MEDS: dexAMETHasone 6 MG in SYRINGE 0 ML IV SCH (09:41)
[2021-04-12] MEDS: MUPIROCIN 2% OINT 22 GM TUBE EXT SCH ×2 (09:42→20:47)
[2021-04-12] MEDS: 2mg Daily x 14 days (eGFR 30-59 mL/min/1.73m2) PO SCH (09:46)
[2021-04-12] MEDS: ADVANCED PROBIOTIC 1250 MG CAPSULE PO SCH (09:46)
[2021-04-12] MEDS: DICLOFENAC SOD 1% GEL 100 GM TUBE EXT SCH ×4 (09:47→20:47)
--- NOTE | 2021-04-12 11:28 | Hospitalist Progress Note ---
Date of Service April 12, 2021 Assessment & Plan (1) Acute respiratory failure with hypoxia: Plan: 2nd COVID-19 pneumonia. Likely has element of acute diastolic CHF. Cannot rule out early ARDS. Continue IV dexamethasone for COVID-19. Continue baricitinib. Increase lasix to 40mg IV daily. Consider echo. Leave on BIPAP; consider using it regularly at HS. Then try to back down again to HFNC. Given her clinical worsening will Tx to 2 [facility] unit. Finally, d-dimer is elevated. Too ill to do CTA chest. Will obtain dopplers, r/o DVT. Dimer elevation may simply be acute phase reactant due to her illness. (2) 2019 novel coronavirus-infected pneumonia (NCIP): Plan: severe disease, with marked elevation of CRP (>20) early in admission, and diffuse pneumonia clinically & radiographically. progressed from NC O2 up to large quantities of high-flow NC. worsened this am and despite maxed out HFNC she was still hypoxia. changed to BIPAP. day #6 of IV dexamethasone 6mg daily. completed 5-day course of Remdesivir. continue baricitinib - day #4 of such. GFR now about 60 - increase baricitinib to 4mg/day. repeat BMP am. DVT proph - lovenox 40mg BID. see #1 above. (3) Acute diastolic (congestive) heart failure: Plan: Highly suspected. Increase lasix to 40mg IV. Consider echo. (4) HTN (hypertension): Plan: Uncontrolled. Resume lisinopril. Consider topical nitrates for afterload reduction while trying to diurese. (5) LORI (acute kidney injury): Plan: Peak Cr 1.47. Now 0.9. Baseline 0.8/0.9. Can resume lisinopril. daily BMP. (6) Morbid obesity with BMI of 40.0-44.9, adult: Plan: BMI 43 of note -- weight has increased over the last few days worrisome for fluid retention - see above (7) Elevated AST (SGOT): Plan: 2nd COVID-19 infection. repeat AST now normal. recent CPK wnl. (8) Leukopenia: Plan: 2nd COVID-19 infection w/ resulting bone marrow suppression. resolved. (9) UTI (urinary tract infection): Plan: rocephin 2gm IV daily initially for e.coli UTI. can d/c rocephin, change to augmentin to complete course. (10) DVT prophylaxis: Plan: cont lovenox 40mg BID. Plan: updated Ricky Calvilloomid, pt's significant other of 20+ years discussed worsening status and move to [address] [place] [address] unit attempted to call pt's daughter - unsuccessful Admission and Anticipated Discharge Date Admission Date: April 07, 2021 Subjective contacted by nursing staff this am that patient was doing poorly despite maxed out high-flow NC she was continuing with hypoxia an oxymask had to be placed on top of the high-flow to maintain sats in the low 90s request for BIPAP given upon arrival the patient was tachypneic she admitted to dyspnea no chest pain minimal cough no abdominal pain respiratory arrived about the same time that I did the patient and I briefly discussed her wishes regarding intubation, mech ventilation, etc she reports never thinking about it before same for CPR BIPAP applied; pt tolerated; RRs still 30-35, FiO2 requirements 60% Review of Systems Review of Systems: gen - no fevers, no chills; fatigue CV - orthopnea present pulm - dyspnea, SAMANIEGO GI - no N/V Physical Exam Physical Exam: gen - obese, respiratory distress with tachypnea, she says very little mouth - MMM neck - question mild JVD heart - RRR, s1 s2, no murmur lungs - diffuse rales bases; airation fair/good; tachypnea; no wheeze abd - soft NT ND BS+ ext - 1+ edema b/l, pulses 2+ b/l Results & Data Results & Data ([facility]) Vital Signs (Past 12 Hours) Vital Signs Temp Pulse Pulse Resp BP BP Pulse Ox 04/12/21 08:00 68 04/12/21 07:36 36.6 C 60 24 138/83 95 04/12/21 05:48 69 22 100 04/12/21 03:35 36.6 C 57 L 20 153/78 H 93 04/12/21 02:30 53 L 20 94 Laboratory Results Laboratory Results - last 24 hr 04/11/21 04/11/21 04/12/21 11:05 18:40 06:20 WBC RBC Hgb Hct MCV MCH MCHC RDW Std Deviation RDW Coeff of Marlene Plt Count MPV Sodium 139 Potassium 3.8 3.9 Chloride 108 H Carbon Dioxide 25 Anion Gap 6.0 BUN 30 H Creatinine 0.93 Est Cr Clr Drug Dosing 63.2 Est GFR ( Amer) 70.2 Est GFR (Non-Af Amer) 60.5 BUN/Creatinine Ratio 31.8 H Glucose 96 Calcium 8.5 AST 29 ALT 24 C-Reactive Protein Stool Occult Bld Scrn Negative 04/12/21 04/12/21 06:20 06:20 WBC 6.96 RBC 4.38 Hgb 14.0 Hct 40.2 MCV 91.8 MCH 32.0 MCHC 34.8 RDW Std Deviation 56.6 H RDW Coeff of Marlene 16.9 H Plt Count 295 MPV 11.5 H Sodium Potassium Chloride Carbon Dioxide Anion Gap BUN Creatinine Est Cr Clr Drug Dosing Est GFR ( Amer) Est GFR (Non-Af Amer) BUN/Creatinine Ratio Glucose Calcium AST ALT C-Reactive Protein Pending Stool Occult Bld Scrn Diagnostic Findings Chest X-Ray 04/12/21 10:44 XR chest 1V portable CLINICAL HISTORY: worsening resp failure. COVID-19 COMPARISON STUDY: Chest radiograph April 10, 2021. FINDINGS: Lung volumes are normal. There is no pneumothorax or pleural effusion. Moderate multifocal airspace opacities within the lungs are similar to prior examination and increased from initial chest radiograph of April 10, 2021. Cardiomediastinal silhouette is stable. IMPRESSION: No significant change in moderate bilateral airspace opacities consistent with viral pneumonia. ACT 112: Negative or not required by law. Electronically signed by: Clinton Zaidi M.D. 04/12/2021 11:51 AM Venous Doppler Study 04/12/21 12:09 US venous doppler LE CLINICAL HISTORY: Leg swelling. severe COVID, marked elevation d-dimer; eval DVT COMPARISON: None available at the time of this dictation. TECHNIQUE: Bilateral lower extremity real-time compression venous ultrasound with Color Doppler imaging. Utilizing real-time ultrasonic imaging multiple real time high-resolution ultrasonic images with compression and noncompression maneuvers of the deep venous system in addition to color doppler imaging were performed from the common femoral vein through the proximal calf veins. FINDINGS: Currently there is normal compressibility of the deep venous system from the common femoral vein through the proximal calf veins. No current evidence of acute thrombosis is identified. However, there is a fluid collection seen adjacent to the right common femoral artery measuring 5.4 x 2.6 x 2.0 cm. It is avascular and is most characteristic of a small seroma or hematoma and not a pseudoaneurysm. Impression: No evidence of deep venous thrombus. Small seroma versus hematoma adjacent to the right common femoral artery. Clinical correlation is necessary. ACT 112: Negative or not required by law. Electronically signed by: Antwon Jensen M.D. 04/12/2021 1:34 PM PG Care Time/CCT Total # of Minutes Spent Total Time Spent with Patient: Total time spent is greater than 50% in coordination of care (as documented) at patient's floor/unit and/or counseling patient: Coding Level of Care Code 88141 Subseq Hosp Care Lvl 3 Diagnoses 2019 novel coronavirus-infected pneumonia (NCIP) U07.1; J12.82 Acute respiratory failure with hypoxia J96.01 HTN (hypertension) I10 LORI (acute kidney injury) N17.9 Morbid obesity with BMI of 40.0-44.9, adult E66.01; Z68.41 Elevated AST (SGOT) R74.01 Leukopenia D72.819 UTI (urinary tract infection) N39.0 DVT prophylaxis Z29.9 Acute diastolic (congestive) heart failure I50.31
--- NOTE | 2021-04-12 11:53 | XRay Report ---
XR chest 1V portable CLINICAL HISTORY: worsening resp failure. COVID-19 COMPARISON STUDY: Chest radiograph April 10, 2021. FINDINGS: Lung volumes are normal. There is no pneumothorax or pleural effusion. Moderate multifocal airspace opacities within the lungs are similar to prior examination and increased from initial chest radiograph of April 10, 2021. Cardiomediastinal silhouette is stable. IMPRESSION: No significant change in moderate bilateral airspace opacities consistent with viral pne [facility]. ACT 112: Negative or not required by law. Electronically signed by: Clinton Zaidi M.D. 04/12/2021 11:51 AM
[2021-04-12 12:00] LABS: D Dimer 2460 ug/L FEU (0-500)
--- NOTE | 2021-04-12 13:36 | Ultrasound Report ---
US venous doppler LE BI CLINICAL HISTORY: Leg swelling. severe COVID, marked elevation d-dimer; eval DVT COMPARISON: None available at the time of this dictation. TECHNIQUE: Bilateral lower extremity real-time compression venous ultrasound with Color Doppler imagi ng. Utilizing real-time ultrasonic imaging multiple real time high-resolution ultrasonic images with comp ression and noncompression maneuvers of the deep venous system in addition to color doppler imaging w ere performed from the common femoral vein through the proximal calf veins. FINDINGS: Currently there is normal compressibility of the deep venous system from the common femoral vein thro ugh the proximal calf veins. No current evidence of acute thrombosis is identified. However, there is a fluid collection seen adjacent to the right common femoral artery measuring 5.4 x 2.6 x 2.0 cm. It is avascular and is most characteristic of a small seroma or hematoma and not a pse udoaneurysm. Impression: No evidence of deep venous thrombus. Small seroma versus hematoma adjacent to the right common femora l artery. Clinical correlation is necessary. ACT 112: Negative or not required by law. Electronically signed by: Antwon Jensen M.D. 04/12/2021 1:34 PM
[2021-04-12 13:49] LABS: Base Excess ABG 1.7 mEq/L (-9-1.8); HCO3 ABG 24 mmol/L (19-24); PCO2 ABG 32 mmHg (35-46); PO2 ABG 74 mmHg (80-95)
[2021-04-12] MEDS ORDERED: BARICITINIB 2 MG TAB PO ONE ×2 (14:00→16:15)
[2021-04-12 15:45] LABS: Allen Test POS (Pos)
[2021-04-12] MEDS ORDERED: lisinopril 20 MG TAB PO STA (16:42)
[2021-04-12] MEDS: ACETAMINOPHEN 325 MG TAB PO PRN (22:47)
[2021-04-13 07:32] LABS: BUN Creatinine Ratio 34.2 (10-20); Calcium 8.8 mg/dl (8.5-10.1); Creatinine Clr Calc Pharmacy 61.9 ml/min; Est GFR (African American) 68.4 ml/min; Magnesium 2.3 mg/dl (1.8-2.4); Potassium 3.9 mmol/L (3.5-5.1)
[2021-04-13] MEDS: dexAMETHasone 6 MG in SYRINGE 0 ML IV SCH (09:08)
[2021-04-13] MEDS: lisinopril 20 MG TAB PO SCH (09:08)
[2021-04-13] MEDS: ADVANCED PROBIOTIC 1250 MG CAPSULE PO SCH (09:08)
[2021-04-13] MEDS: AMOXICILLIN/CLAVULANATE 875 MG TAB PO SCH ×2 (09:08→16:14)
[2021-04-13] MEDS: DICLOFENAC SOD 1% GEL 100 GM TUBE EXT SCH ×4 (09:09→20:01)
[2021-04-13] MEDS: FAMOTIDINE 20 MG TAB PO SCH ×2 (09:09→20:02)
[2021-04-13] MEDS: 2mg Daily x 14 days (eGFR 30-59 mL/min/1.73m2) PO SCH (09:09)
[2021-04-13] MEDS: ENOXAPARIN INJ 40 MG/0.4 ML SYR SQ SCH ×2 (09:09→20:03)
[2021-04-13] MEDS: FUROSEMIDE 40 MG/4 ML VIAL IV SCH (09:10)
[2021-04-13] MEDS: MUPIROCIN 2% OINT 22 GM TUBE EXT SCH ×2 (09:11→20:02)
--- NOTE | 2021-04-13 13:07 | XCELERA ---
[id number]
--- NOTE | 2021-04-13 20:22 | Hospitalist Progress Note ---
Date of Service April 13, 2021 Assessment & Plan (1) Acute respiratory failure with hypoxia: Plan: 2nd COVID-19 pneumonia. Complicated by acute diastolic CHF. Cannot rule out early ARDS. Continue IV dexamethasone for COVID-19. Day #7. Continue baricitinib 2mg daily (renal-dosing). Day #5. Continue lasix 40mg IV daily. Echo with preserved EF with diastolic dysfunction grade 1. Cont HFNC; would use BIPAP at HS if she will comply. Dopplers negative for DVT. Given her clinical improvement PEs unlikely. Dimer elevation likely acute phase reactant due to her illness. (2) 2019 novel coronavirus-infected pneumonia (NCIP): Plan: severe disease, with marked elevation of CRP (>20) early in admission, and diffuse pneumonia clinically & radiographically. progressed from NC O2 up to large quantities of high-flow NC over last few days, then needed BIPAP on 04/12. transferred to [facility] COVID unit yesterday because of clinical worsening. she has improved with diuresis suggesting an element of acute diastolic CHF. cont lasix 40mg IV daily. day #7 of IV dexamethasone 6mg daily. completed 5-day course of Remdesivir. continue baricitinib - day #7 of such. if GFR remains consistently > 60 - increase baricitinib to 4mg/day. repeat BMP am. DVT proph - lovenox 40mg BID. see #1 above. (3) Acute diastolic (congestive) heart failure: Plan: Cont lasix 40mg IV daily. Echo with hyperdynamic EF; grade 1 diastolic dysfunction. Improved. BMP am. (4) HTN (hypertension): Plan: Improved with resuming lisinopril. (5) LORI (acute kidney injury): Plan: resolved. Peak Cr 1.47. Now 0.9. Baseline 0.8/0.9. daily BMP while diuresing. (6) Morbid obesity with BMI of 40.0-44.9, adult: Plan: BMI 43 (7) Elevated AST (SGOT): Plan: 2nd COVID-19 infection. repeat AST now normal. recent CPK wnl. (8) Leukopenia: Plan: 2nd COVID-19 infection w/ resulting bone marrow suppression. resolved. (9) UTI (urinary tract infection): Plan: rocephin 2gm IV daily initially for e.coli UTI. d/c rocephin, changed to augmentin to complete course. day #2 of 3 of augmentin. (10) DVT prophylaxis: Plan: cont lovenox 40mg BID. Plan: updated Ricky Vega, pt's significant other of 20+ years, on 04/12 updated pt's daughter on 04/13 PT, OT needed; patient very weak diarrhea - c diff ordered Admission and Anticipated Discharge Date Admission Date: April 07, 2021 Subjective patient with multiple liquid stools today patient states "it's always like that" [at home] she denies any major change in how she feels; perhaps modestly better than yesterday laying on side during the visit mild cough, no change no dyspnea at rest but has SAMANIEGO no chest pain appetite fair tele overnight wnl Review of Systems Review of Systems: gen - no fevers, no chills CV - no orthopnea pulm - no hemoptysis GI - no abd pain, no nausea, no emesis Physical Exam Physical Exam: gen - obese, no distress today, comfortable, laying on side; more talkative than previous visits mouth - MMM neck - no JVD today heart - RRR, s1 s2, no murmur lungs - b/l basilar rales much improved today; no wheeze; no distress abd - soft NT ND BS+ ext - trace edema b/l, pulses 2+ b/l psych - a/o x 3 Results & Data Results & Data ([facility]) Vital Signs (Past 12 Hours) Vital Signs Temp Pulse Pulse Pulse Resp BP BP 04/13/21 19:10 36.7 C 82 24 97/77 L 04/13/21 17:06 74 04/13/21 15:33 63 21 04/13/21 15:19 36.8 C 82 24 134/59 L 04/13/21 11:46 36.6 C 59 L 22 114/85 04/13/21 11:00 63 20 Pulse Ox 04/13/21 19:10 95 04/13/21 17:06 04/13/21 15:33 96 04/13/21 15:19 94 04/13/21 11:46 91 04/13/21 11:00 90 Laboratory Results Laboratory Results - last 24 hr 04/13/21 06:14 Sodium 137 Potassium 3.9 Chloride 104 Carbon Dioxide 28 Anion Gap 5.0 BUN 33 H Creatinine 0.95 Est Cr Clr Drug Dosing 61.9 Est GFR ( Amer) 68.4 Est GFR (Non-Af Amer) 59.0 BUN/Creatinine Ratio 34.2 H Glucose 95 Calcium 8.8 Magnesium 2.3 PG Care Time/CCT Total # of Minutes Spent Total Time Spent with Patient: Total time spent is greater than 50% in coordination of care (as documented) at patient's floor/unit and/or counseling patient: Coding Level of Care Code 82334 Subseq Hosp Care Lvl 3 Diagnoses Acute respiratory failure with hypoxia J96.01 2019 novel coronavirus-infected pneumonia (NCIP) U07.1; J12.82 Acute diastolic (congestive) heart failure I50.31 HTN (hypertension) I10 LORI (acute kidney injury) N17.9 Morbid obesity with BMI of 40.0-44.9, adult E66.01; Z68.41 Elevated AST (SGOT) R74.01 Leukopenia D72.819 UTI (urinary tract infection) N39.0 DVT prophylaxis Z29.9
[2021-04-14 07:07] LABS: Hemoglobin 13.5 g/dL (12.0-16.0); Mean Corpuscular Hemoglobin 30.7 pg (25-34); Mean Corpuscular Hgb Conc 33.8 g/dL (32-36); Mean Corpuscular Volume 90.9 fL (80-100); Platelet Count 274 K/uL (130-400); RDW Coefficient of Variation 16.2 % (11.5-14.5); RDW Standard Deviation 54.2 fL (36.4-46.3); White Blood Count 10.11 K/uL (4.8-10.8)
[2021-04-14 07:33] LABS: BUN Creatinine Ratio 44.2 (10-20); Calcium 8.2 mg/dl (8.5-10.1); Creatinine Clr Calc Pharmacy 68.2 ml/min; Est GFR (African American) 77.1 ml/min; Est GFR (Non-African American) 66.6 ml/min; Potassium 4.1 mmol/L (3.5-5.1)
[2021-04-14] MEDS: 2mg Daily x 14 days (eGFR 30-59 mL/min/1.73m2) PO SCH (07:58)
[2021-04-14] MEDS: ENOXAPARIN INJ 40 MG/0.4 ML SYR SQ SCH ×2 (07:59→21:07)
[2021-04-14] MEDS: dexAMETHasone 6 MG in SYRINGE 0 ML IV SCH (07:59)
[2021-04-14] MEDS: MUPIROCIN 2% OINT 22 GM TUBE EXT SCH ×2 (07:59→21:07)
[2021-04-14] MEDS: lisinopril 20 MG TAB PO SCH (07:59)
[2021-04-14] MEDS: FAMOTIDINE 20 MG TAB PO SCH ×2 (07:59→21:07)
[2021-04-14] MEDS: AMOXICILLIN/CLAVULANATE 875 MG TAB PO SCH ×2 (08:00→16:39)
[2021-04-14] MEDS: ADVANCED PROBIOTIC 1250 MG CAPSULE PO SCH (08:00)
[2021-04-14] MEDS: DICLOFENAC SOD 1% GEL 100 GM TUBE EXT SCH ×4 (08:01→21:07)
[2021-04-14] MEDS: FUROSEMIDE 40 MG/4 ML VIAL IV SCH (08:04)
[2021-04-14] MEDS ORDERED: BARICITINIB 2 MG TAB PO ONE (13:30)
--- NOTE | 2021-04-14 18:10 | Hospitalist Progress Note ---
Date of Service April 14, 2021 Assessment & Plan (1) Acute respiratory failure with hypoxia: Plan: improving. 2nd COVID-19 pneumonia. Complicated by acute diastolic CHF. Cannot rule out early ARDS. Continue IV dexamethasone for COVID-19. Day #8. 6mg daily. Continue baricitinib 4mg daily. Day #6. Continue lasix 40mg IV daily. BMP remains stable. Echo with preserved EF with diastolic dysfunction grade 1. Cont wall-mounted high-flow. Wean as tolerated. Dopplers negative for DVT. Given her clinical improvement PEs unlikely. Dimer elevation likely acute phase reactant due to her illness. (2) 2019 novel coronavirus-infected pneumonia (NCIP): Plan: severe disease, with marked elevation of CRP (>20) early in admission, and diffuse pneumonia clinically & radiographically. progressed from NC O2 up to large quantities of high-flow NC last week/weekend, then needed BIPAP on 04/12. transferred to [facility] COVID unit 04/12 because of clinical worsening. she has improved with diuresis suggesting an element of acute diastolic CHF. cont lasix 40mg IV daily. day #8 of IV dexamethasone 6mg daily. completed 5-day course of Remdesivir. continue baricitinib - day #6 of such. DVT proph - lovenox 40mg BID. see #1 above. (3) Acute diastolic (congestive) heart failure: Plan: improving weights, improving net negative balance. Cont lasix 40mg IV daily. Echo with hyperdynamic EF; grade 1 diastolic dysfunction. BMP am. (4) HTN (hypertension): Plan: BPs controlled with lisinopril. (5) LORI (acute kidney injury): Plan: resolved. Peak Cr 1.47. Now 0.9. Baseline 0.8/0.9. daily BMP while diuresing. (6) Morbid obesity with BMI of 40.0-44.9, adult: Plan: BMI 42 (7) Elevated AST (SGOT): Plan: 2nd COVID-19 infection. resolved. recent CPK also wnl. (8) Leukopenia: Plan: 2nd COVID-19 infection w/ resulting bone marrow suppression. resolved. (9) UTI (urinary tract infection): Plan: rocephin 2gm IV daily initially for e.coli UTI. d/c rocephin, changed to augmentin to complete course. day #3 of 3 of augmentin. stop abx after tonight's dose. (10) DVT prophylaxis: Plan: cont lovenox 40mg BID. (11) Physical deconditioning: (12) Diarrhea: Plan: acute/chronic c diff negative obtain KUB - assess stool load; r/o "overflow" stooling consider colestipol once-twice daily to bulk the stool consider stool cx antibiotics could also be making worse she remains on lactinex Plan: updated Ricky Vega, pt's significant other of 20+ years, on 04/12 updated pt's daughter on 04/13 and 04/14 by phone PT, OT needed; patient very weak I discussed with patient that we should aim for OOB to chair tomorrow Also discussed with her that I presume she will need rehab post-d/c due to severe weakness & deconditioning Admission and Anticipated Discharge Date Admission Date: April 07, 2021 Subjective continues with multiple liquid stools each day in the absence of abdominal pain able to eat and appetite is much better c diff negative still w/ cough still w/ dyspnea but all pulmonary symptoms are better has been weaned from HFNC to wall-mounted high-flow, 10-11 L today when PT came to work with her she declined getting out of bed tele overnight wnl Review of Systems Review of Systems: gen - no fevers or chills pulm - no hemoptysis GI - no vomiting - velásquez remains CV - no chest pain Physical Exam Physical Exam: gen - obese, no distress, comfortable mouth - MMM neck - no JVD heart - RRR, s1 s2, no murmur lungs - b/l basilar rales, L>R, but much better than previous; no wheeze; no distress abd - soft NT ND BS+ ext - trace edema b/l, pulses 2+ b/l psych - a/o x 3 Results & Data Results & Data ([facility]) Vital Signs (Past 12 Hours) Vital Signs Temp Pulse Pulse Pulse Resp BP BP 04/14/21 16:25 73 04/14/21 15:13 36.7 C 73 20 135/73 04/14/21 11:53 36.4 C L 63 19 99/50 L 04/14/21 10:10 63 04/14/21 07:56 36.9 C 68 20 138/89 Pulse Ox 04/14/21 16:25 01/12/22 15:13 93 04/14/21 11:53 94 04/14/21 10:10 04/14/21 07:56 92 Laboratory Results Laboratory Results - last 24 hr 04/13/21 04/14/21 04/14/21 21:30 05:36 05:36 WBC 10.11 RBC 4.40 Hgb 13.5 Hct 40.0 MCV 90.9 MCH 30.7 MCHC 33.8 RDW Std Deviation 54.2 H RDW Coeff of Marlene 16.2 H Plt Count 274 MPV 12.0 H Sodium 137 Potassium 4.1 Chloride 105 Carbon Dioxide 26 Anion Gap 6 BUN 38 H Creatinine 0.86 Est Cr Clr Drug Dosing 68.2 Est GFR ( Amer) 77.1 Est GFR (Non-Af Amer) 66.6 BUN/Creatinine Ratio 44.2 H Glucose 108 H Calcium 8.2 L Stl C. diff Tox B Gene Negative Cdiff Gene PG Care Time/CCT Total # of Minutes Spent Total Time Spent with Patient: Total time spent is greater than 50% in coordination of care (as documented) at patient's floor/unit and/or counseling patient: Coding Level of Care Code 08576 Subseq Hosp Care Lvl 3 Diagnoses Acute respiratory failure with hypoxia J96.01 2019 novel coronavirus-infected pneumonia (NCIP) U07.1; J12.82 Acute diastolic (congestive) heart failure I50.31 HTN (hypertension) I10 LORI (acute kidney injury) N17.9 Morbid obesity with BMI of 40.0-44.9, adult E66.01; Z68.41 Elevated AST (SGOT) R74.01 Leukopenia D72.819 UTI (urinary tract infection) N39.0 DVT prophylaxis Z29.9 Physical deconditioning R53.81 Diarrhea R19.7
--- NOTE | 2021-04-14 19:28 | XRay Report ---
KUB HISTORY: Acute generalized abdominal pain frequent stooling; assess fecal load COMPARISON: Chest radiograph April 12, 2021 FINDINGS: Nonobstructive bowel gas pattern. No significant fecal retention to suggest constipation. P elvic basin phleboliths. No renal calculi. No ureteral calculi. No pneumoperitoneum or pneumatosis. Degenerative changes of the spine, pelvis and hips. No fracture. Cardiac megaly with multifocal airsp anita opacities redemonstrated. Cholecystectomy. IMPRESSION: 1. Nonobstructive bowel gas pattern. 2. Cardiomegaly with multifocal pneumonia redemonstrated. ACT 112: Negative or not required by law. The above report was generated using voice recognition software. It may contain grammatical, syntax o r spelling errors. Electronically signed by: Aashish Day M.D. 04/14/2021 7:26 PM
[2021-04-15 08:23] LABS: BUN Creatinine Ratio 42.2 (10-20); Calcium 8.3 mg/dl (8.5-10.1); Creatinine Clr Calc Pharmacy 63.8 ml/min; Potassium 4.2 mmol/L (3.5-5.1)
[2021-04-15] MEDS: AMOXICILLIN/CLAVULANATE 875 MG TAB PO SCH (08:59)
[2021-04-15] MEDS: FAMOTIDINE 20 MG TAB PO SCH ×2 (09:01→22:53)
[2021-04-15] MEDS: lisinopril 20 MG TAB PO SCH (09:01)
[2021-04-15] MEDS: ENOXAPARIN INJ 40 MG/0.4 ML SYR SQ SCH ×2 (09:02→22:52)
[2021-04-15] MEDS: ADVANCED PROBIOTIC 1250 MG CAPSULE PO SCH (09:02)
[2021-04-15] MEDS: DICLOFENAC SOD 1% GEL 100 GM TUBE EXT SCH ×4 (09:03→22:51)
[2021-04-15] MEDS: MUPIROCIN 2% OINT 22 GM TUBE EXT SCH ×2 (09:03→22:53)
[2021-04-15] MEDS: dexAMETHasone 6 MG in SYRINGE 0 ML IV SCH (09:08)
[2021-04-15] MEDS: 4mg Daily x 14 days (eGFR >60 mL/min/1.73m2) PO SCH (09:08)
[2021-04-15] MEDS: FUROSEMIDE 40 MG/4 ML VIAL IV SCH (09:08)
[2021-04-15] MEDS: COLESTIPOL HCL 1 GM TAB PO SCH (11:57)
--- NOTE | 2021-04-15 18:16 | Hospitalist Progress Note ---
Date of Service April 15, 2021 Assessment & Plan (1) Acute respiratory failure with hypoxia: Plan: improving. 2nd COVID-19 pneumonia. Complicated by acute diastolic CHF. Could have had mild ARDS as well. Continue IV dexamethasone for COVID-19. Day #9. 6mg daily. Continue baricitinib 4mg daily. Day #7. Give lasix today; then hold; reassess for more lasix tomorrow, but suspect we are near euvolemia. Echo with preserved EF with diastolic dysfunction grade 1. Cont wall-mounted high-flow. Wean as tolerated. Dopplers of legs were checked earlier this week and were negative for DVT. (2) 2019 novel coronavirus-infected pneumonia (NCIP): Plan: severe disease, with marked elevation of CRP (>20) early in admission, and diffuse pneumonia clinically & radiographically. progressed from NC O2 up to large quantities of high-flow NC last week/weekend, then needed BIPAP on 04/12. transferred to [facility] COVID unit 04/12 because of clinical worsening. she has improved with diuresis suggesting an element of acute diastolic CHF. day #9 of IV dexamethasone 6mg daily. completed 5-day course of Remdesivir. continue baricitinib - day #7 of such. DVT proph - lovenox 40mg BID. see #1 above. (3) Acute diastolic (congestive) heart failure: Plan: Improved. Suspect we are approaching euvolemia. Give lasix today, then hold. Reassess for additional diuresis tomorrow. of note - Echo this admission with hyperdynamic EF; grade 1 diastolic dysfunction. BMP am. (4) HTN (hypertension): Plan: BPs are trending lower, perhaps due to aggressive diuresis. stop lasix. hold lisinopril. (5) LORI (acute kidney injury): Plan: resolved. Peak Cr 1.47. Now 0.9. Baseline 0.8/0.9. daily BMP (6) Morbid obesity with BMI of 40.0-44.9, adult: Plan: BMI 41 (7) Elevated AST (SGOT): Plan: 2nd COVID-19 infection. resolved. (8) Leukopenia: Plan: 2nd COVID-19 infection w/ resulting bone marrow suppression. resolved. (9) UTI (urinary tract infection): Plan: 2nd e.coli completed a course of IV rocephin then PO augmentin for total of 7 days of Rx abx are finished (10) DVT prophylaxis: Plan: cont lovenox 40mg BID. (11) Physical deconditioning: Plan: PT, OT (12) Diarrhea: Plan: acute/chronic c diff negative obtained KUB - no significant stool load start colestipol twice daily to bulk the stool consider stool cx if the diarrhea persists some of the diarrhea could simply be abx-associated some of it could be COVID itself cont lactinex Plan: updated Ricky Vega, pt's significant other of 20+ years, on 04/12 updated pt's daughter on 04/13, 04/14 and then again today by phone I highly encouraged pt to OOB to chair today after my visit nursing staff indeed got her to the chair cont PT, OT Admission and Anticipated Discharge Date Admission Date: April 07, 2021 Subjective tele stable overnight pt denies any new complaints slept poorly last pm because of frequent stooling she denies abd pain no nausea eating well no change in dyspnea or cough has not gotten out of bed yet Review of Systems Review of Systems: gen - no fevers or chills; weakness remains CV - no chest pain pulm - minimal sputum GI - no vomiting Physical Exam Physical Exam: gen - obese, no distress, comfortable; looks good today mouth - MMM; no thrush neck - no JVD heart - RRR, s1 s2, no murmur lungs - L basilar rales, fine; no rales on R; no wheeze; no distress abd - soft NT ND BS+ ext - no edema b/l, pulses 2+ b/l psych - a/o x 3 Results & Data Results & Data ([facility]) Vital Signs (Past 12 Hours) Vital Signs Temp Pulse Resp BP Pulse Ox 04/15/21 15:16 36.6 C 75 20 104/54 L 96 04/15/21 07:32 36.7 C 70 20 121/77 94 Laboratory Results Laboratory Results - last 24 hr 04/15/21 06:35 Sodium 137 Potassium 4.2 Chloride 104 Carbon Dioxide 27 Anion Gap 6 BUN 38 H Creatinine 0.90 Est Cr Clr Drug Dosing 63.8 Est GFR ( Amer) 73.0 Est GFR (Non-Af Amer) 63.0 BUN/Creatinine Ratio 42.2 H Glucose 92 Calcium 8.3 L C-Reactive Protein 2.88 PG Care Time/CCT Total # of Minutes Spent Total Time Spent with Patient: Total time spent is greater than 50% in coordination of care (as documented) at patient's floor/unit and/or counseling patient: Coding Level of Care Code 18403 Subseq Hosp Care Lvl 3 Diagnoses Acute respiratory failure with hypoxia J96.01 2019 novel coronavirus-infected pneumonia (NCIP) U07.1; J12.82 Acute diastolic (congestive) heart failure I50.31 HTN (hypertension) I10 LORI (acute kidney injury) N17.9 Morbid obesity with BMI of 40.0-44.9, adult E66.01; Z68.41 Elevated AST (SGOT) R74.01 Leukopenia D72.819 UTI (urinary tract infection) N39.0 DVT prophylaxis Z29.9 Physical deconditioning R53.81 Diarrhea R19.7
[2021-04-16] MEDS: COLESTIPOL HCL 1 GM TAB PO SCH ×3 (05:13→22:56)
[2021-04-16 06:55] LABS: Anion Gap 9 (3-11); BUN Creatinine Ratio 51.1 (10-20); Blood Urea Nitrogen 47 mg/dl (6-23); Calcium 8.4 mg/dl (8.5-10.1); Carbon Dioxide 20 mmol/L (21-32); Chloride 104 mmol/L (98-107); Creatinine Clr Calc Pharmacy 62.2 ml/min; Est GFR (African American) 71.1 ml/min; Est GFR (Non-African American) 61.3 ml/min; Glucose 111 mg/dl (70-99); Magnesium 2.2 mg/dl (1.7-2.4); Sodium 133 mmol/L (136-145)
[2021-04-16] MEDS: dexAMETHasone 6 MG in SYRINGE 0 ML IV SCH (09:25)
[2021-04-16] MEDS: ENOXAPARIN INJ 40 MG/0.4 ML SYR SQ SCH ×2 (09:25→20:15)
[2021-04-16] MEDS: FAMOTIDINE 20 MG TAB PO SCH ×2 (09:26→20:15)
[2021-04-16] MEDS: ADVANCED PROBIOTIC 1250 MG CAPSULE PO SCH (09:26)
[2021-04-16] MEDS: DICLOFENAC SOD 1% GEL 100 GM TUBE EXT SCH ×2 (09:26→15:10)
[2021-04-16] MEDS: 4mg Daily x 14 days (eGFR >60 mL/min/1.73m2) PO SCH (09:28)
[2021-04-16] MEDS: MUPIROCIN 2% OINT 22 GM TUBE EXT SCH ×2 (10:49→20:16)
[2021-04-16] MEDS ORDERED: LOPERAMIDE HCL 2 MG CAP PO PRN (13:35)
--- NOTE | 2021-04-16 19:05 | Hospitalist Progress Note ---
Date of Service April 16, 2021 Assessment & Plan (1) Acute respiratory failure with hypoxia: Plan: Improving. Making progress albeit slowly. 2nd COVID-19 pneumonia. Complicated by acute diastolic CHF. Could have had mild ARDS as well. Today is day #10 of IV dexamethasone for COVID-19 - will stop after today's dose. Continue baricitinib 4mg daily. Day #8. Patient slightly dry clinically and based on mildly low Na level today -- stop lasix. Echo with preserved EF with diastolic dysfunction grade 1. Cont wall-mounted high-flow. Wean as tolerated. Dopplers of legs were checked earlier this week and were negative for DVT. (2) 2019 novel coronavirus-infected pneumonia (NCIP): Plan: severe disease, with marked elevation of CRP (>20) early in admission, and diffuse pneumonia clinically & radiographically. progressed from NC O2 up to large quantities of high-flow NC last week/weekend, then needed BIPAP on 04/12/21. transferred to [facility] COVID unit 04/12 because of clinical worsening. fortunately she has improved through the week with diuresis suggesting an element of acute diastolic CHF in addition to her pneumonia. day #10 of IV dexamethasone 6mg daily - stop after today's dose. completed 5-day course of Remdesivir. continue baricitinib - day #8 of such. DVT proph - lovenox 40mg BID. see #1 above. (3) Acute diastolic (congestive) heart failure: Plan: Resolved. Looks slightly dry today. Stop lasix. Echo this admission with hyperdynamic EF; grade 1 diastolic dysfunction. BMP am. (4) HTN (hypertension): Plan: BPs had trended down in setting of diuresis. BP meds placed on hold this week. Cont to hold; resume as needed. Typically takes lisinopril-HCT at home. (5) LORI (acute kidney injury): Plan: resolved. Peak Cr 1.47. Now 0.9. Baseline 0.8/0.9. (6) Morbid obesity with BMI of 40.0-44.9, adult: Plan: BMI 41 (7) Elevated AST (SGOT): Plan: 2nd COVID-19 infection. resolved. (8) Leukopenia: Plan: 2nd COVID-19 infection w/ resulting bone marrow suppression. resolved. (9) UTI (urinary tract infection): Plan: 2nd e.coli completed a course of IV rocephin then PO augmentin for total of 7 days of Rx abx are finished (10) DVT prophylaxis: Plan: cont lovenox 40mg BID. would recommend 30 days of Xarelto 10mg daily post-d/c for prophylaxis. (11) Physical deconditioning: Plan: cont PT, OT will need rehab post-discharge (12) Diarrhea: Plan: acute/chronic c diff negative obtained KUB - no significant stool load started colestipol twice daily to bulk the stool but she continues with loose stools, multiple times each day some of the diarrhea could simply be abx-associated some of it could be COVID itself she had her gall bladder out years ago - could be "bile acid" diarrhea, but should have improved w/ colestipol. check stool for giardia. check fecal fat, qualitative. check pancreatic elastase, r/o pancreatic insufficiency (she reports frequent stool after eating). cont lactinex. allow loperamide prn. Plan: updated Ricky Silvia, pt's significant other of 20+ years, on 04/12 updated pt's daughter on 04/13, 04/14, 04/15, and again tonight daughter aware patient will need rehab post-d/c cont PT, OT cont OOB to chair slowly progressing overall Admission and Anticipated Discharge Date Admission Date: April 07, 2021 Subjective tele stable overnight patient "feeling good" but did complain that the room was cold; she asked for more blankets eating well sleeping well at night did work with OT today - rehab advised did sit in chair again today no N/V diarrhea persists - per staff she has had 3 loose stools since this am no dyspnea at rest Review of Systems Review of Systems: gen - no fevers or chills pulm - minimal sputum; no hemoptysis CV - no cp, no orthopnea, edema resolved GI - no abd pain despite diarrhea Physical Exam Physical Exam: gen - obese, no distress mouth - MM slightly dry; no thrush neck - no JVD heart - RRR, s1 s2, no murmur lungs - L basilar rales, fine - no change; no rales on R; no wheeze; no distress abd - soft NT ND BS+ ext - no edema b/l, pulses 2+ b/l psych - a/o x 3 Results & Data Results & Data ([facility]) Vital Signs (Past 12 Hours) Vital Signs Temp Pulse Pulse Resp BP BP Pulse Ox 04/16/21 16:00 76 04/16/21 15:57 36.6 C 56 L 18 140/69 98 04/16/21 10:50 36.6 C 67 20 141/65 H 88 L 04/16/21 08:14 36.4 C L 56 L 20 109/60 94 04/16/21 07:36 45 L Laboratory Results Laboratory Results - last 24 hr 04/16/21 05:35 Sodium 133 L Potassium TNP Chloride 104 Carbon Dioxide 20 L Anion Gap 9 BUN 47 H Creatinine 0.92 Est Cr Clr Drug Dosing 62.2 Est GFR ( Amer) 71.1 Est GFR (Non-Af Amer) 61.3 BUN/Creatinine Ratio 51.1 H Glucose 111 H Calcium 8.4 L Magnesium 2.2 PG Care Time/CCT Total # of Minutes Spent Total Time Spent with Patient: Total time spent is greater than 50% in coordination of care (as documented) at patient's floor/unit and/or counseling patient: Coding Level of Care Code 91628 Subseq Hosp Care Lvl 3 Diagnoses Acute respiratory failure with hypoxia J96.01 2019 novel coronavirus-infected pneumonia (NCIP) U07.1; J12.82 Acute diastolic (congestive) heart failure I50.31 HTN (hypertension) I10 LORI (acute kidney injury) N17.9 Morbid obesity with BMI of 40.0-44.9, adult E66.01; Z68.41 Elevated AST (SGOT) R74.01 Leukopenia D72.819 UTI (urinary tract infection) N39.0 DVT prophylaxis Z29.9 Physical deconditioning R53.81 Diarrhea R19.7
[2021-04-16] MEDS: ACETAMINOPHEN 325 MG TAB PO PRN (19:40)
[2021-04-17] MEDS: DICLOFENAC SOD 1% GEL 100 GM TUBE EXT SCH ×5 (07:16→20:12)
[2021-04-17] MEDS: MUPIROCIN 2% OINT 22 GM TUBE EXT SCH ×2 (08:47→20:10)
[2021-04-17] MEDS: ADVANCED PROBIOTIC 1250 MG CAPSULE PO SCH (08:47)
[2021-04-17] MEDS: FAMOTIDINE 20 MG TAB PO SCH ×2 (08:47→20:11)
[2021-04-17] MEDS: ENOXAPARIN INJ 40 MG/0.4 ML SYR SQ SCH ×2 (08:47→20:10)
[2021-04-17] MEDS: 4mg Daily x 14 days (eGFR >60 mL/min/1.73m2) PO SCH (08:50)
--- NOTE | 2021-04-17 08:50 | Hospitalist Progress Note ---
Date of Service April 17, 2021 Assessment & Plan (1) Acute respiratory failure with hypoxia: Plan: Improving. Making progress albeit slowly. 2nd COVID-19 pneumonia. Complicated by acute diastolic CHF. Could have had mild ARDS as well. completed 10 days of dexamethasone on 04/16 Continue baricitinib 4mg daily. Day #9 holding Lasix today Echo with preserved EF with diastolic dysfunction grade 1. Cont wall-mounted high-flow. Wean as tolerated, she is 95% on 12L, will get lower Dopplers of legs : negative for DVT. (2) 2019 novel coronavirus-infected pneumonia (NCIP): Plan: severe disease, with marked elevation of CRP (>20) early in admission, and diffuse pneumonia clinically & radiographically. progressed from NC O2 up to large quantities of high-flow NC last week/weekend, then needed BIPAP on 04/12/21. transferred to [facility] COVID unit 04/12 because of clinical worsening. fortunately she has improved through the week with diuresis suggesting an element of acute diastolic CHF in addition to her pneumonia. completed 10 days of IV dexamethasone 6mg daily completed 5-day course of Remdesivir. continue baricitinib - day #9 of such. DVT proph - lovenox 40mg BID. see #1 above. (3) Acute diastolic (congestive) heart failure: Plan: Resolved. Looks euvolemic today, continue to hold Lasix Echo this admission with hyperdynamic EF; grade 1 diastolic dysfunction. BMP pending (4) HTN (hypertension): Plan: BPs had trended down in setting of diuresis. BP meds placed on hold this week. Cont to hold; resume as needed. Typically takes lisinopril-HCT at home. BP 123/77 this morning (5) LORI (acute kidney injury): Plan: resolved. Peak Cr 1.47. Now 0.9. repeat BMP this morning pending (6) Morbid obesity with BMI of 40.0-44.9, adult: Plan: BMI 41 (7) Elevated AST (SGOT): Plan: 2nd COVID-19 infection. resolved. (8) Leukopenia: Plan: 2nd COVID-19 infection w/ resulting bone marrow suppression. resolved. (9) UTI (urinary tract infection): Plan: 2nd e.coli completed a course of IV rocephin then PO augmentin for total of 7 days of Rx abx are finished (10) DVT prophylaxis: Plan: cont lovenox 40mg BID. would recommend 30 days of Xarelto 10mg daily post-d/c for prophylaxis. (11) Physical deconditioning: Plan: cont PT, OT will need rehab post-discharge, hopeful she will be ready by end of the week (12) Diarrhea: Plan: acute/chronic c diff negative obtained KUB - no significant stool load allow loperamide prn. Plan: daughter aware patient will need rehab post-d/c cont PT, OT cont OOB to chair slowly progressing overall Admission and Anticipated Discharge Date Admission Date: April 07, 2021 Subjective patient doing well, sitting up in her chair, complains that it is really cold she is on 12L but she is 95%, will lower her oxygen, spoke with RN she is eating well, had a BM today, no diarrhea reviewed chart and most recent lab work discussed goal of getting out of the hospital by the end of this upcoming week, she agreed Review of Systems Review of Systems: All systems reviewed & are unremarkable except as noted in Subjective Constitutional: + weakness; no fever and no fatigue Respiratory: + dyspnea on exertion; no cough and no dyspnea Cardiovascular: no chest pain Gastrointestinal: no abdominal pain, no nausea, no vomiting, no constipation and no diarrhea/loose stools Physical Exam Physical Exam: General: well developed, obese female, ill appearing, mild distress Neck: supple, trachea midline, normal thyroid Lungs: clear to auscultation bilaterally, normal effort, no accessory muscle use, speaking in full sentences Heart: regular S1 and S2, no murmur, peripheral pulses normal, capillary refill normal, no edema Abdomen: soft, NT, ND, + BS, no hepatomegaly, normal to percussion Extremities: normal in appearance, no cyanosis, no petechiae, strength is 5/5 bilaterally Neuro: awake, cooperative, moves all extremities, no focal motor deficits, CN II-XII intact, sensation in extremities intact, normal speech Skin: warm, dry, no rash, normal turgor Psych: Awake, alert oriented x 3, euthymic affect Results & Data Results & Data ([facility]) Vital Signs (Past 12 Hours) Vital Signs Temp Pulse Pulse Pulse Resp BP BP 04/17/21 08:34 72 19 123/77 04/17/21 03:52 36.7 C 70 20 153/73 H 04/16/21 22:57 36.6 C 46 L 18 131/77 04/16/21 22:19 43 L Pulse Ox 04/17/21 08:34 93 04/17/21 03:52 92 04/16/21 22:57 96 04/16/21 22:19 Laboratory Results Laboratory Results - last 24 hr 04/17/21 07:05 Sodium Pending Potassium Pending Chloride Pending Carbon Dioxide Pending Anion Gap Pending BUN Pending Creatinine Pending Est Cr Clr Drug Dosing Pending Est GFR ( Amer) Pending Est GFR (Non-Af Amer) Pending BUN/Creatinine Ratio Pending Glucose Pending Calcium Pending Medications Administered Current Inpatient Medications Acetaminophen (Acetaminophen 325 Mg Tab) 650 mg PO Q4H PRN PRN Reason: Pain or Fever Stop: 05/07/21 21:06 Last Admin: 04/16/21 19:40 Dose: 650 mg Documented by: Baricitinib (4mg Daily X 14 Days (Egfr >60 Ml/Min/1.73m2)) 4 mg PO DAILY [facility]; Protocol Stop: 04/23/21 11:59 Last Admin: 04/16/21 09:28 Dose: 4 mg Documented by: Colestipol HCl (Colestipol Hcl 1 Gm Tab) 1 gm PO BID@1000,2200 [facility] Stop: 05/15/21 09:59 Last Admin: 04/16/21 22:56 Dose: 1 gm Documented by: Diclofenac Sodium (Diclofenac Sod 1% Gel 100 Gm Tube) 4 gm EXT QID [facility] Stop: 05/12/21 08:59 Last Admin: 04/17/21 07:16 Dose: Not Given Documented by: Enoxaparin Sodium (Enoxaparin Inj 40 Mg/0.4 Ml Syr) 40 mg SQ BID [facility] Stop: 05/09/21 08:59 Last Admin: 04/16/21 20:15 Dose: 40 mg Documented by: Famotidine (Famotidine 20 Mg Tab) 20 mg PO BID [facility] Stop: 05/08/21 09:44 Last Admin: 04/16/21 20:15 Dose: 20 mg Documented by: Furosemide (Furosemide 40 Mg/4 Ml Vial) 40 mg IV QAM [facility] Stop: 05/12/21 08:59 Last Admin: 04/15/21 09:08 Dose: 40 mg Documented by: Guaifenesin/Codeine Phosphate (Guaifenesin/Codeine 100mg/10mg 5ml Udc) 5 ml PO Q6H PRN PRN Reason: Cough Stop: 05/09/21 12:39 Lactobacillus Acidoph/Casei/Rhamnos (Advanced Probiotic 1250 Mg Capsule) 2 cap PO DAILY [facility] Stop: 05/12/21 08:59 Last Admin: 04/16/21 09:26 Dose: 2 cap Documented by: Lisinopril (Lisinopril 20 Mg Tab) 20 mg PO QAM [facility] Stop: 05/13/21 08:59 Last Admin: 04/15/21 09:01 Dose: 20 mg Documented by: Loperamide HCl (Loperamide Hcl 2 Mg Cap) 2 mg PO Q4H PRN PRN Reason: diarrhea Stop: 05/16/21 13:34 Miconazole Nitrate (Miconazole Nitrate Powder 43 Gm) 1 appln EXT BID PRN PRN Reason: Affected Skin Folds Stop: 05/08/21 16:29 Mupirocin (Mupirocin 2% Oint 22 Gm Tube) 1 appln EXT BID [facility] Stop: 05/10/21 10:29 Last Admin: 04/16/21 20:16 Dose: 1 appln Documented by: Ondansetron HCl (Ondansetron Inj 2 Mg/Ml 2 Ml Vial) 4 mg IV Q6H PRN PRN Reason: Nausea Stop: 05/07/21 21:06 Sodium Chloride (Sodium Chloride 0.65% Na Soln 45 Ml ([place])) 1 sprays NA Q1H PRN PRN Reason: Dryness Stop: 05/10/21 10:22 PG Care Time/CCT Total # of Minutes Spent Total Time Spent with Patient: Total time spent is greater than 50% in coordination of care (as documented) at patient's floor/unit and/or counseling patient: Coding Level of Care Code 84642 Subseq Hosp Care Lvl 3 Diagnoses Acute respiratory failure with hypoxia J96.01 2019 novel coronavirus-infected pneumonia (NCIP) U07.1; J12.82 Acute diastolic (congestive) heart failure I50.31 HTN (hypertension) I10 LORI (acute kidney injury) N17.9 Morbid obesity with BMI of 40.0-44.9, adult E66.01; Z68.41 Elevated AST (SGOT) R74.01 Leukopenia D72.819 UTI (urinary tract infection) N39.0 DVT prophylaxis Z29.9 Physical deconditioning R53.81 Diarrhea R19.7
[2021-04-17] MEDS: COLESTIPOL HCL 1 GM TAB PO SCH (10:51)
[2021-04-17 13:21] LABS: Anion Gap 6 (3-11); BUN Creatinine Ratio 56.3 (10-20); Blood Urea Nitrogen 45 mg/dl (6-23); Calcium 8.6 mg/dl (8.5-10.1); Carbon Dioxide 27 mmol/L (21-32); Chloride 101 mmol/L (98-107); Creatinine Clr Calc Pharmacy 71.5 ml/min; Est GFR (African American) 84.2 ml/min; Est GFR (Non-African American) 72.6 ml/min; Glucose 88 mg/dl (70-99); Sodium 134 mmol/L (136-145)
[2021-04-18] MEDS: COLESTIPOL HCL 1 GM TAB PO SCH ×3 (01:56→22:00)
[2021-04-18] MEDS: 4mg Daily x 14 days (eGFR >60 mL/min/1.73m2) PO SCH (09:41)
[2021-04-18] MEDS: ACETAMINOPHEN 325 MG TAB PO PRN (09:41)
[2021-04-18] MEDS: DICLOFENAC SOD 1% GEL 100 GM TUBE EXT SCH ×4 (09:41→20:08)
[2021-04-18] MEDS: ENOXAPARIN INJ 40 MG/0.4 ML SYR SQ SCH ×2 (09:42→20:09)
[2021-04-18] MEDS: ADVANCED PROBIOTIC 1250 MG CAPSULE PO SCH (09:43)
[2021-04-18] MEDS: FAMOTIDINE 20 MG TAB PO SCH ×2 (09:43→20:09)
[2021-04-18] MEDS: MUPIROCIN 2% OINT 22 GM TUBE EXT SCH ×2 (09:43→20:10)
[2021-04-18] MEDS: FUROSEMIDE 40 MG/4 ML VIAL IV SCH (09:47)
--- NOTE | 2021-04-18 13:18 | Hospitalist Progress Note ---
Date of Service April 18, 2021 Assessment & Plan (1) Acute respiratory failure with hypoxia: Plan: stable, on 15L today but no distress 2nd COVID-19 pneumonia. Complicated by acute diastolic CHF. Could have had mild ARDS as well. completed 10 days of dexamethasone on 04/16 Continue baricitinib 4mg daily. Day #10 gave Lasix 40mg IV this morning, good response Echo with preserved EF with diastolic dysfunction grade 1. Cont wall-mounted high-flow. 15L today Dopplers of legs : negative for DVT. (2) 2019 novel coronavirus-infected pneumonia (NCIP): Plan: severe disease, with marked elevation of CRP (>20) early in admission, and diffuse pneumonia clinically & radiographically. progressed from NC O2 up to large quantities of high-flow NC last week/weekend, then needed BIPAP on 04/12/21. transferred to [facility] COVID unit 04/12 because of clinical worsening. fortunately she has improved through the week with diuresis suggesting an element of acute diastolic CHF in addition to her pneumonia. completed 10 days of IV dexamethasone 6mg daily completed 5-day course of Remdesivir. continue baricitinib - day #10 of such. DVT proph - lovenox 40mg BID. check CRP tomorrow, if elevated then resume steroids (3) Acute diastolic (congestive) heart failure: Plan: Resolved. Looks euvolemic today, gave Lasix 40mg IV Echo this admission with hyperdynamic EF; grade 1 diastolic dysfunction. BMP pending (4) HTN (hypertension): Plan: BPs had trended down in setting of diuresis. BP meds placed on hold this week. Cont to hold; resume as needed. Typically takes lisinopril-HCT at home. BP 113/70 this morning (5) LORI (acute kidney injury): Plan: resolved. Peak Cr 1.47. Now 0.8 repeat BMP tomorrow (6) Morbid obesity with BMI of 40.0-44.9, adult: Plan: BMI 41 (7) Elevated AST (SGOT): Plan: 2nd COVID-19 infection. resolved. (8) Leukopenia: Plan: 2nd COVID-19 infection w/ resulting bone marrow suppression. resolved. (9) UTI (urinary tract infection): Plan: 2nd e.coli completed a course of IV rocephin then PO augmentin for total of 7 days of Rx abx are finished (10) DVT prophylaxis: Plan: cont lovenox 40mg BID. would recommend 30 days of Xarelto 10mg daily post-d/c for prophylaxis. (11) Physical deconditioning: Plan: cont PT, OT will need rehab post-discharge, hopeful she will be ready by end of the week (12) Diarrhea: Plan: acute/chronic c diff negative obtained KUB - no significant stool load allow loperamide prn. Plan: daughter aware patient will need rehab post-d/c cont PT, OT cont OOB to chair slowly progressing overall Admission and Anticipated Discharge Date Admission Date: April 07, 2021 Subjective patient is cold because heat broken in her room, she has a heated blanket she made a lot of urine with Lasix 40mg IV this morning, will change to PO tomorrow she is breathing fine although she is up to 15L, saturations 92-94% check CRP tomorrow she is eating well, moving her bowels no other complaints Review of Systems Review of Systems: All systems reviewed & are unremarkable except as noted in Subjective Physical Exam Physical Exam: General: well developed, obese female, mild distress Neck: supple, trachea midline, normal thyroid Lungs: clear to auscultation bilaterally, normal effort, no accessory muscle use, speaking in full sentences Heart: regular S1 and S2, no murmur, peripheral pulses normal, capillary refill normal, no edema Abdomen: soft, NT, ND, + BS, no hepatomegaly, normal to percussion Extremities: normal in appearance, no cyanosis, no petechiae, strength is 5/5 bilaterally Neuro: awake, cooperative, moves all extremities, no focal motor deficits, CN II-XII intact, sensation in extremities intact, normal speech Skin: warm, dry, no rash, normal turgor Psych: Awake, alert oriented x 3, euthymic affect Results & Data Results & Data ([facility]) Vital Signs (Past 12 Hours) Vital Signs Temp Pulse Resp BP Pulse Ox 04/18/21 11:04 36.8 C 81 20 113/70 98 04/18/21 07:19 36.6 C 71 22 116/92 98 04/18/21 03:15 36.7 C 70 18 146/81 H 99 Laboratory Results Laboratory Results - last 24 hr 04/17/21 07:05 Sodium 134 L Chloride 101 Carbon Dioxide 27 Anion Gap 6 BUN 45 H Creatinine 0.80 Est Cr Clr Drug Dosing 71.5 Est GFR ( Amer) 84.2 Est GFR (Non-Af Amer) 72.6 BUN/Creatinine Ratio 56.3 H Glucose 88 Calcium 8.6 Medications Administered Current Inpatient Medications Acetaminophen (Acetaminophen 325 Mg Tab) 650 mg PO Q4H PRN PRN Reason: Pain or Fever Stop: 05/07/21 21:06 Last Admin: 04/18/21 09:41 Dose: 650 mg Documented by: Baricitinib (4mg Daily X 14 Days (Egfr >60 Ml/Min/1.73m2)) 4 mg PO DAILY [facility]; Protocol Stop: 04/23/21 11:59 Last Admin: 04/18/21 09:41 Dose: 4 mg Documented by: Colestipol HCl (Colestipol Hcl 1 Gm Tab) 1 gm PO BID@1000,2200 [facility] Stop: 05/15/21 09:59 Last Admin: 04/18/21 09:42 Dose: 1 gm Documented by: Diclofenac Sodium (Diclofenac Sod 1% Gel 100 Gm Tube) 4 gm EXT QID [facility] Stop: 05/12/21 08:59 Last Admin: 04/18/21 09:41 Dose: Not Given Documented by: Enoxaparin Sodium (Enoxaparin Inj 40 Mg/0.4 Ml Syr) 40 mg SQ BID [facility] Stop: 05/09/21 08:59 Last Admin: 04/18/21 09:42 Dose: 40 mg Documented by: Famotidine (Famotidine 20 Mg Tab) 20 mg PO BID [facility] Stop: 05/08/21 09:44 Last Admin: 04/18/21 09:43 Dose: 20 mg Documented by: Furosemide (Furosemide 40 Mg/4 Ml Vial) 40 mg IV QAM [facility] Stop: 05/12/21 08:59 Last Admin: 04/18/21 09:47 Dose: 40 mg Documented by: Guaifenesin/Codeine Phosphate (Guaifenesin/Codeine 100mg/10mg 5ml Udc) 5 ml PO Q6H PRN PRN Reason: Cough Stop: 05/09/21 12:39 Lactobacillus Acidoph/Casei/Rhamnos (Advanced Probiotic 1250 Mg Capsule) 2 cap PO DAILY [facility] Stop: 05/12/21 08:59 Last Admin: 04/18/21 09:43 Dose: 2 cap Documented by: Lisinopril (Lisinopril 20 Mg Tab) 20 mg PO QAM [facility] Stop: 05/13/21 08:59 Last Admin: 04/15/21 09:01 Dose: 20 mg Documented by: Loperamide HCl (Loperamide Hcl 2 Mg Cap) 2 mg PO Q4H PRN PRN Reason: diarrhea Stop: 05/16/21 13:34 Miconazole Nitrate (Miconazole Nitrate Powder 43 Gm) 1 appln EXT BID PRN PRN Reason: Affected Skin Folds Stop: 05/08/21 16:29 Mupirocin (Mupirocin 2% Oint 22 Gm Tube) 1 appln EXT BID [facility] Stop: 05/10/21 10:29 Last Admin: 04/18/21 09:43 Dose: 1 appln Documented by: Ondansetron HCl (Ondansetron Inj 2 Mg/Ml 2 Ml Vial) 4 mg IV Q6H PRN PRN Reason: Nausea Stop: 05/07/21 21:06 Sodium Chloride (Sodium Chloride 0.65% Na Soln 45 Ml ([place])) 1 sprays NA Q1H PRN PRN Reason: Dryness Stop: 05/10/21 10:22 PG Care Time/CCT Total # of Minutes Spent Total Time Spent with Patient: Total time spent is greater than 50% in coordination of care (as documented) at patient's floor/unit and/or counseling patient: Coding Level of Care Code 06297 Subseq Hosp Care Lvl 2 Diagnoses Acute respiratory failure with hypoxia J96.01 2019 novel coronavirus-infected pneumonia (NCIP) U07.1; J12.82 Acute diastolic (congestive) heart failure I50.31 HTN (hypertension) I10 LORI (acute kidney injury) N17.9 Morbid obesity with BMI of 40.0-44.9, adult E66.01; Z68.41 Elevated AST (SGOT) R74.01 Leukopenia D72.819 UTI (urinary tract infection) N39.0 DVT prophylaxis Z29.9 Physical deconditioning R53.81 Diarrhea R19.7
[2021-04-19 07:43] LABS: Anion Gap 5 (3-11); BUN Creatinine Ratio 35.6 (10-20); Blood Urea Nitrogen 31 mg/dl (6-23); Calcium 8.3 mg/dl (8.5-10.1); Carbon Dioxide 28 mmol/L (21-32); Chloride 101 mmol/L (98-107); Creatinine Clr Calc Pharmacy 65.7 ml/min; Est GFR (African American) 76.1 ml/min; Est GFR (Non-African American) 65.6 ml/min; Glucose 82 mg/dl (70-99(Fasting)); Potassium 4.3 mmol/L (3.5-5.1); Sodium 134 mmol/L (136-145)
[2021-04-19] MEDS: FAMOTIDINE 20 MG TAB PO SCH ×2 (08:39→20:01)
[2021-04-19] MEDS: ADVANCED PROBIOTIC 1250 MG CAPSULE PO SCH (08:39)
[2021-04-19] MEDS: FUROSEMIDE 40 MG TAB PO SCH (08:39)
[2021-04-19] MEDS: MUPIROCIN 2% OINT 22 GM TUBE EXT SCH ×2 (08:40→20:01)
[2021-04-19] MEDS: DICLOFENAC SOD 1% GEL 100 GM TUBE EXT SCH ×4 (08:40→20:00)
[2021-04-19] MEDS: ENOXAPARIN INJ 40 MG/0.4 ML SYR SQ SCH ×2 (08:40→20:00)
[2021-04-19] MEDS: 4mg Daily x 14 days (eGFR >60 mL/min/1.73m2) PO SCH (08:42)
[2021-04-19] MEDS: COLESTIPOL HCL 1 GM TAB PO SCH ×2 (10:10→21:04)
--- NOTE | 2021-04-19 10:55 | Hospitalist Progress Note ---
Date of Service April 19, 2021 Assessment & Plan (1) Acute respiratory failure with hypoxia: Plan: stable, on 10L today, can likely turn down further goal is 88-90%, want to limit FiO2 to only what is necessary 2nd COVID-19 pneumonia. Complicated by acute diastolic CHF. Could have had mild ARDS as well. completed 10 days of dexamethasone on 04/16 Continue baricitinib 4mg daily. Day #11 gave Lasix 40mg PO this morning, continue daily Echo with preserved EF with diastolic dysfunction grade 1. Cont wall-mounted high-flow. 10L today. can likely be on less oxygen told RN to wean down Dopplers of legs : negative for DVT. (2) 2019 novel coronavirus-infected pneumonia (NCIP): Plan: severe disease, with marked elevation of CRP (>20) early in admission, and diffuse pneumonia clinically & radiographically. progressed from NC O2 up to large quantities of high-flow NC last week/weekend, then needed BIPAP on 04/12/21. [facility] because of clinical worsening. fortunately she has improved through the week with diuresis suggesting an element of acute diastolic CHF in addition to her pneumonia. completed 10 days of IV dexamethasone 6mg daily completed 5-day course of Remdesivir. continue baricitinib - day #11 of such. DVT proph - lovenox 40mg BID. CRP is < 0.5 today (3) Acute diastolic (congestive) heart failure: Plan: examines euvolemic, continue Lasix 40mg PO daily Echo this admission with hyperdynamic EF; grade 1 diastolic dysfunction. BMP shows K and Cr stable (4) HTN (hypertension): Plan: BPs going back up slightly, SBP in 140s resume Lisinopril tomorrow (5) LORI (acute kidney injury): Plan: resolved. Peak Cr 1.47. Now 0.87 (6) Morbid obesity with BMI of 40.0-44.9, adult: Plan: BMI 41 (7) Elevated AST (SGOT): Plan: 2nd COVID-19 infection. resolved. (8) Leukopenia: Plan: 2nd COVID-19 infection w/ resulting bone marrow suppression. resolved. (9) UTI (urinary tract infection): Plan: 2nd e.coli completed a course of IV rocephin then PO augmentin for total of 7 days of Rx abx are finished (10) DVT prophylaxis: Plan: cont lovenox 40mg BID. would recommend 30 days of Xarelto 10mg daily post-d/c for prophylaxis. (11) Physical deconditioning: Plan: cont PT, OT will need rehab post-discharge, hopeful she will be ready by end of the week working on getting oxygen requirements down (12) Diarrhea: Plan: acute/chronic c diff negative obtained KUB - no significant stool load allow loperamide prn. Plan: daughter aware patient will need rehab post-d/c cont PT, OT cont OOB to chair move to medical floor, wean oxygen down, try for rehab by end of week Admission and Anticipated Discharge Date Admission Date: April 07, 2021 Subjective patient doing well today, still cold but has her heated blanket she was on 15L 99%, turned her down to 10L and she was stable, still 99% told her RN to keep weaning oxygen down, want her to be 90% saturations eating well, making urine with Lasix 40mg PO this morning Cr and K are stable move to medical floor today Review of Systems Review of Systems: All systems reviewed & are unremarkable except as noted in Subjective Respiratory: + dyspnea on exertion; no cough and no dyspnea Cardiovascular: no chest pain Gastrointestinal: no abdominal pain, no nausea, no vomiting, no constipation and no diarrhea/loose stools Physical Exam Physical Exam: General: well developed, obese female, mild distress Neck: supple, trachea midline, normal thyroid Lungs: clear to auscultation bilaterally, normal effort, no accessory muscle use, speaking in full sentences Heart: regular S1 and S2, no murmur, peripheral pulses normal, capillary refill normal, no edema Abdomen: soft, NT, ND, + BS, no hepatomegaly, normal to percussion Extremities: normal in appearance, no cyanosis, no petechiae, strength is 5/5 bilaterally Neuro: awake, cooperative, moves all extremities, no focal motor deficits, CN II-XII intact, sensation in extremities intact, normal speech Skin: warm, dry, no rash, normal turgor Psych: Awake, alert oriented x 3, euthymic affect Results & Data Results & Data ([facility]) Vital Signs (Past 12 Hours) Vital Signs Temp Pulse Pulse Pulse Resp BP Pulse Ox 04/19/21 07:38 69 04/19/21 07:32 37.0 C 72 18 140/80 98 04/19/21 03:03 37.0 C 65 18 142/63 H 96 04/18/21 23:18 36.5 C 54 L 14 147/80 H 98 Laboratory Results Laboratory Results - last 24 hr 04/19/21 05:46 Sodium 134 L Potassium 4.3 Chloride 101 Carbon Dioxide 28 Anion Gap 5 BUN 31 H Creatinine 0.87 Est Cr Clr Drug Dosing 65.7 Est GFR ( Amer) 76.1 Est GFR (Non-Af Amer) 65.6 BUN/Creatinine Ratio 35.6 H Glucose 82 Calcium 8.3 L C-Reactive Protein < 0.50 Medications Administered Current Inpatient Medications Acetaminophen (Acetaminophen 325 Mg Tab) 650 mg PO Q4H PRN PRN Reason: Pain or Fever Stop: 05/07/21 21:06 Last Admin: 04/18/21 09:41 Dose: 650 mg Documented by: Baricitinib (4mg Daily X 14 Days (Egfr >60 Ml/Min/1.73m2)) 4 mg PO DAILY [facility]; Protocol Stop: 04/23/21 11:59 Last Admin: 04/19/21 08:42 Dose: 4 mg Documented by: Colestipol HCl (Colestipol Hcl 1 Gm Tab) 1 gm PO BID@1000,2200 [facility] Stop: 05/15/21 09:59 Last Admin: 04/19/21 10:10 Dose: 1 gm Documented by: Diclofenac Sodium (Diclofenac Sod 1% Gel 100 Gm Tube) 4 gm EXT QID [facility] Stop: 05/12/21 08:59 Last Admin: 04/19/21 08:40 Dose: 4 gm Documented by: Enoxaparin Sodium (Enoxaparin Inj 40 Mg/0.4 Ml Syr) 40 mg SQ BID [facility] Stop: 05/09/21 08:59 Last Admin: 04/19/21 08:40 Dose: 40 mg Documented by: Famotidine (Famotidine 20 Mg Tab) 20 mg PO BID [facility] Stop: 05/08/21 09:44 Last Admin: 04/19/21 08:39 Dose: 20 mg Documented by: Furosemide (Furosemide 40 Mg Tab) 40 mg PO QAM [facility] Stop: 05/19/21 08:59 Last Admin: 04/19/21 08:39 Dose: 40 mg Documented by: Guaifenesin/Codeine Phosphate (Guaifenesin/Codeine 100mg/10mg 5ml Udc) 5 ml PO Q6H PRN PRN Reason: Cough Stop: 05/09/21 12:39 Lactobacillus Acidoph/Casei/Rhamnos (Advanced Probiotic 1250 Mg Capsule) 2 cap PO DAILY [facility] Stop: 05/12/21 08:59 Last Admin: 04/19/21 08:39 Dose: 2 cap Documented by: Lisinopril (Lisinopril 20 Mg Tab) 20 mg PO QAM [facility] Stop: 05/13/21 08:59 Last Admin: 04/15/21 09:01 Dose: 20 mg Documented by: Loperamide HCl (Loperamide Hcl 2 Mg Cap) 2 mg PO Q4H PRN PRN Reason: diarrhea Stop: 05/16/21 13:34 Miconazole Nitrate (Miconazole Nitrate Powder 43 Gm) 1 appln EXT BID PRN PRN Reason: Affected Skin Folds Stop: 05/08/21 16:29 Mupirocin (Mupirocin 2% Oint 22 Gm Tube) 1 appln EXT BID [facility] Stop: 05/10/21 10:29 Last Admin: 04/19/21 08:40 Dose: 1 appln Documented by: Ondansetron HCl (Ondansetron Inj 2 Mg/Ml 2 Ml Vial) 4 mg IV Q6H PRN PRN Reason: Nausea Stop: 05/07/21 21:06 Sodium Chloride (Sodium Chloride 0.65% Na Soln 45 Ml ([place])) 1 sprays NA Q1H PRN PRN Reason: Dryness Stop: 05/10/21 10:22 PG Care Time/CCT Total # of Minutes Spent Total Time Spent with Patient: Total time spent is greater than 50% in coordination of care (as documented) at patient's floor/unit and/or counseling patient: Coding Level of Care Code 26925 Subseq Hosp Care Lvl 3 Diagnoses Acute respiratory failure with hypoxia J96.01 2019 novel coronavirus-infected pneumonia (NCIP) U07.1; J12.82 Acute diastolic (congestive) heart failure I50.31 HTN (hypertension) I10 LORI (acute kidney injury) N17.9 Morbid obesity with BMI of 40.0-44.9, adult E66.01; Z68.41 Elevated AST (SGOT) R74.01 Leukopenia D72.819 UTI (urinary tract infection) N39.0 DVT prophylaxis Z29.9 Physical deconditioning R53.81 Diarrhea R19.7
[2021-04-19 11:50] LABS: C Reactive Protein 2.88 mg/dl (0-0.5)
[2021-04-19 12:52] LABS: C Reactive Protein < 0.50 mg/dl (0-0.5)
[2021-04-19] MEDS: ACETAMINOPHEN 325 MG TAB PO PRN (19:53)
[2021-04-20] MEDS: ADVANCED PROBIOTIC 1250 MG CAPSULE PO SCH (09:08)
[2021-04-20] MEDS: FAMOTIDINE 20 MG TAB PO SCH ×2 (09:09→21:17)
[2021-04-20] MEDS: lisinopril 20 MG TAB PO SCH (09:09)
[2021-04-20] MEDS: FUROSEMIDE 40 MG TAB PO SCH (09:09)
[2021-04-20] MEDS: ENOXAPARIN INJ 40 MG/0.4 ML SYR SQ SCH ×2 (09:09→21:17)
[2021-04-20] MEDS: 4mg Daily x 14 days (eGFR >60 mL/min/1.73m2) PO SCH (09:09)
[2021-04-20] MEDS: MUPIROCIN 2% OINT 22 GM TUBE EXT SCH ×2 (09:09→21:17)
[2021-04-20] MEDS: COLESTIPOL HCL 1 GM TAB PO SCH ×2 (09:09→21:18)
[2021-04-20] MEDS: DICLOFENAC SOD 1% GEL 100 GM TUBE EXT SCH ×4 (09:09→21:16)
--- NOTE | 2021-04-20 09:20 | Hospitalist Progress Note ---
Date of Service April 20, 2021 Assessment & Plan (1) Acute respiratory failure with hypoxia: Plan: markedly improved the past 24 hours, down to 4L this morning, saturations 95%, keep turning her down goal is 88-90%, want to limit FiO2 to only what is necessary 2nd COVID-19 pneumonia. Complicated by acute diastolic CHF. Could have had mild ARDS as well. completed 10 days of dexamethasone on 04/16 Continue baricitinib 4mg daily. Day #12 of 14 continue Lasix 40mg PO every morning Echo with preserved EF with diastolic dysfunction grade 1. Cont wall-mounted high-flow. 4L today. can likely be on less oxygen told RN to wean down Dopplers of legs : negative for DVT. (2) 2019 novel coronavirus-infected pneumonia (NCIP): Plan: severe disease, with marked elevation of CRP (>20) early in admission, and diffuse pneumonia clinically & radiographically. progressed from NC O2 up to large quantities of high-flow NC last week/weekend, then needed BIPAP on 04/12/21. transferred to [facility] COVID unit 04/12 because of clinical worsening. fortunately she has improved through the week with diuresis suggesting an element of acute diastolic CHF in addition to her pneumonia. completed 10 days of IV dexamethasone 6mg daily completed 5-day course of Remdesivir. continue baricitinib - day #12 of such. DVT proph - lovenox 40mg BID. CRP is < 0.5 on 04/19 (3) Acute diastolic (congestive) heart failure: Plan: examines euvolemic, continue Lasix 40mg PO daily Echo this admission with hyperdynamic EF; grade 1 diastolic dysfunction. BMP shows K and Cr stable, repeat tomorrow (4) HTN (hypertension): Plan: BPs going back up slightly, SBP in 140s resume Lisinopril today (5) LORI (acute kidney injury): Plan: resolved. BMP every other day (6) Morbid obesity with BMI of 40.0-44.9, adult: Plan: BMI 41 (7) Elevated AST (SGOT): Plan: 2nd COVID-19 infection. resolved. (8) Leukopenia: Plan: 2nd COVID-19 infection w/ resulting bone marrow suppression. resolved. (9) UTI (urinary tract infection): Plan: 2nd e.coli completed a course of IV rocephin then PO augmentin for total of 7 days of Rx abx are finished (10) DVT prophylaxis: Plan: cont lovenox 40mg BID. would recommend 30 days of Xarelto 10mg daily post-d/c for prophylaxis. (11) Physical deconditioning: Plan: cont PT, OT last visit was 04/16, at that time they recommended rehab see if she is stronger today, strong enough to go home if she is strong enough then once on 2L she can go home (12) Diarrhea: Plan: acute/chronic c diff negative obtained KUB - no significant stool load allow loperamide prn. Plan: move to medical floor see if she is strong enough to go home, sit in chair Admission and Anticipated Discharge Date Admission Date: April 07, 2021 Subjective patient doing well today, down to 4L NC, saturations 95%, asked RN to turn down further she is getting up on her own to the bedside commode last therapy note was from 04/16, recommended rehab, will get them to see her again she is stable for [facility] if she still needs rehab no labs today, vitals stable eating well, had a BM today Review of Systems Review of Systems: All systems reviewed & are unremarkable except as noted in Subjective Constitutional: + weakness; no fever, no chills and no fatigue Respiratory: + dyspnea on exertion; no cough and no dyspnea Cardiovascular: no chest pain and no edema Gastrointestinal: no abdominal pain, no nausea, no vomiting, no constipation and no diarrhea/loose stools Physical Exam Physical Exam: General: well developed, obese female, mild distress Neck: supple, trachea midline, normal thyroid Lungs: clear to auscultation bilaterally, normal effort, no accessory muscle use, speaking in full sentences Heart: regular S1 and S2, no murmur, peripheral pulses normal, capillary refill normal, no edema Abdomen: soft, NT, ND, + BS, no hepatomegaly, normal to percussion Extremities: normal in appearance, no cyanosis, no petechiae, strength is 5/5 bilaterally Neuro: awake, cooperative, moves all extremities, no focal motor deficits, CN II-XII intact, sensation in extremities intact, normal speech Skin: warm, dry, no rash, normal turgor Psych: Awake, alert oriented x 3, euthymic affect Results & Data Results & Data ([facility]) Vital Signs (Past 12 Hours) Vital Signs Temp Pulse Pulse Pulse Resp BP BP 04/20/21 07:29 36.5 C 76 16 144/79 H 04/20/21 03:14 36.7 C 65 16 137/85 04/19/21 23:14 37.0 C 77 17 149/67 H 04/19/21 23:00 61 Pulse Ox 04/20/21 07:29 95 04/20/21 03:14 97 04/19/21 23:14 97 04/19/21 23:00 Medications Administered Current Inpatient Medications Acetaminophen (Acetaminophen 325 Mg Tab) 650 mg PO Q4H PRN PRN Reason: Pain or Fever Stop: 05/07/21 21:06 Last Admin: 04/19/21 19:53 Dose: 650 mg Documented by: Baricitinib (4mg Daily X 14 Days (Egfr >60 Ml/Min/1.73m2)) 4 mg PO DAILY [facility]; Protocol Stop: 04/23/21 11:59 Last Admin: 04/20/21 09:09 Dose: 4 mg Documented by: Colestipol HCl (Colestipol Hcl 1 Gm Tab) 1 gm PO BID@1000,2200 [facility] Stop: 05/15/21 09:59 Last Admin: 04/20/21 09:09 Dose: 1 gm Documented by: Diclofenac Sodium (Diclofenac Sod 1% Gel 100 Gm Tube) 4 gm EXT QID [facility] Stop: 05/12/21 08:59 Last Admin: 04/20/21 09:09 Dose: Not Given Documented by: Enoxaparin Sodium (Enoxaparin Inj 40 Mg/0.4 Ml Syr) 40 mg SQ BID [facility] Stop: 05/09/21 08:59 Last Admin: 04/20/21 09:09 Dose: 40 mg Documented by: Famotidine (Famotidine 20 Mg Tab) 20 mg PO BID [facility] Stop: 05/08/21 09:44 Last Admin: 04/20/21 09:09 Dose: 20 mg Documented by: Furosemide (Furosemide 40 Mg Tab) 40 mg PO QAM [facility] Stop: 05/19/21 08:59 Last Admin: 04/20/21 09:09 Dose: 40 mg Documented by: Guaifenesin/Codeine Phosphate (Guaifenesin/Codeine 100mg/10mg 5ml Udc) 5 ml PO Q6H PRN PRN Reason: Cough Stop: 05/09/21 12:39 Lactobacillus Acidoph/Casei/Rhamnos (Advanced Probiotic 1250 Mg Capsule) 2 cap PO DAILY [facility] Stop: 05/12/21 08:59 Last Admin: 04/20/21 09:08 Dose: 2 cap Documented by: Lisinopril (Lisinopril 20 Mg Tab) 20 mg PO QAM [facility] Stop: 05/13/21 08:59 Last Admin: 04/20/21 09:09 Dose: 20 mg Documented by: Loperamide HCl (Loperamide Hcl 2 Mg Cap) 2 mg PO Q4H PRN PRN Reason: diarrhea Stop: 05/16/21 13:34 Miconazole Nitrate (Miconazole Nitrate Powder 43 Gm) 1 appln EXT BID PRN PRN Reason: Affected Skin Folds Stop: 05/08/21 16:29 Mupirocin (Mupirocin 2% Oint 22 Gm Tube) 1 appln EXT BID [facility] Stop: 05/10/21 10:29 Last Admin: 04/20/21 09:09 Dose: Not Given Documented by: Ondansetron HCl (Ondansetron Inj 2 Mg/Ml 2 Ml Vial) 4 mg IV Q6H PRN PRN Reason: Nausea Stop: 05/07/21 21:06 Sodium Chloride (Sodium Chloride 0.65% Na Soln 45 Ml ([place])) 1 sprays NA Q1H PRN PRN Reason: Dryness Stop: 05/10/21 10:22 PG Care Time/CCT Total # of Minutes Spent Total Time Spent with Patient: Total time spent is greater than 50% in coordination of care (as documented) at patient's floor/unit and/or counseling patient: Coding Level of Care Code 98980 Subseq Hosp Care Lvl 3 Diagnoses Acute respiratory failure with hypoxia J96.01 2019 novel coronavirus-infected pneumonia (NCIP) U07.1; J12.82 Acute diastolic (congestive) heart failure I50.31 HTN (hypertension) I10 LORI (acute kidney injury) N17.9 Morbid obesity with BMI of 40.0-44.9, adult E66.01; Z68.41 Elevated AST (SGOT) R74.01 Leukopenia D72.819 UTI (urinary tract infection) N39.0 DVT prophylaxis Z29.9 Physical deconditioning R53.81 Diarrhea R19.7
[2021-04-21 06:43] LABS: BUN Creatinine Ratio 27.7 (10-20); Creatinine Clr Calc Pharmacy 51.5 ml/min; Est GFR (Non-African American) 48.4 ml/min; Potassium 4.1 mmol/L (3.5-5.1)
[2021-04-21] MEDS: ADVANCED PROBIOTIC 1250 MG CAPSULE PO SCH (08:16)
[2021-04-21] MEDS: lisinopril 20 MG TAB PO SCH (08:16)
[2021-04-21] MEDS: FUROSEMIDE 40 MG TAB PO SCH (08:16)
[2021-04-21] MEDS: FAMOTIDINE 20 MG TAB PO SCH ×2 (08:16→20:00)
[2021-04-21] MEDS: 4mg Daily x 14 days (eGFR >60 mL/min/1.73m2) PO SCH (08:27)
[2021-04-21] MEDS: DICLOFENAC SOD 1% GEL 100 GM TUBE EXT SCH ×4 (08:27→19:58)
[2021-04-21] MEDS: ENOXAPARIN INJ 40 MG/0.4 ML SYR SQ SCH ×2 (10:03→19:56)
[2021-04-21] MEDS: COLESTIPOL HCL 1 GM TAB PO SCH ×2 (10:03→21:58)
[2021-04-21] MEDS: MUPIROCIN 2% OINT 22 GM TUBE EXT SCH ×2 (10:03→19:59)
--- NOTE | 2021-04-21 10:21 | Hospitalist Progress Note ---
Date of Service April 21, 2021 Assessment & Plan (1) Acute respiratory failure with hypoxia: Plan: markedly improved the past 24 hours, down to 4L this morning, saturations 95%, keep turning her down goal is 88-90%, want to limit FiO2 to only what is necessary 2nd COVID-19 pneumonia. Complicated by acute diastolic CHF. Could have had mild ARDS as well. completed 10 days of dexamethasone on 04/16 Continue baricitinib 4mg daily. Day #13 of 14 continue Lasix 40mg PO, but decrease frequency to every other day, next dose on 04/23 Echo with preserved EF with diastolic dysfunction grade 1. Cont wall-mounted high-flow. 2L today did not do well on exertion, required 8L, she is deconditioned hold on discharge, try again in 2-3 days Dopplers of legs : negative for DVT. (2) 2019 novel coronavirus-infected pneumonia (NCIP): Plan: severe disease, with marked elevation of CRP (>20) early in admission, and diffuse pneumonia clinically & radiographically. progressed from NC O2 up to large quantities of high-flow NC last week/weekend, then needed BIPAP on 04/12/21. transferred to [facility] COVID unit 04/12 because of clinical worsening. fortunately she has improved through the week with diuresis suggesting an element of acute diastolic CHF in addition to her pneumonia. completed 10 days of IV dexamethasone 6mg daily completed 5-day course of Remdesivir. continue baricitinib - day #13 of such. DVT proph - lovenox 40mg BID. CRP is < 0.5 on 04/19 (3) Acute diastolic (congestive) heart failure: Plan: examines euvolemic, continue Lasix 40mg PO every other day Echo this admission with hyperdynamic EF; grade 1 diastolic dysfunction. BMP shows K and Cr stable (4) HTN (hypertension): Plan: BP stable continue Lisinopril (5) LORI (acute kidney injury): Plan: resolved. BMP every other day (6) Morbid obesity with BMI of 40.0-44.9, adult: Plan: BMI 41 (7) Elevated AST (SGOT): Plan: 2nd COVID-19 infection. resolved. (8) Leukopenia: Plan: 2nd COVID-19 infection w/ resulting bone marrow suppression. resolved. (9) UTI (urinary tract infection): Plan: 2nd e.coli completed a course of IV rocephin then PO augmentin for total of 7 days of Rx abx are finished (10) DVT prophylaxis: Plan: cont lovenox 40mg BID. would recommend 30 days of Xarelto 10mg daily post-d/c for prophylaxis. (11) Physical deconditioning: Plan: cont PT, OT on 04/20 she did fairly well, would recommend home health, home therapy she walked 30 feet without assist device today she only walked 15 feet with two step, got very short of breath, needed 8L (12) Diarrhea: Plan: acute/chronic c diff negative obtained KUB - no significant stool load allow loperamide prn. Plan: medical status work with therapy try to get home in 2-3 days Admission and Anticipated Discharge Date Admission Date: April 07, 2021 Subjective patient frustrated this morning, she did not do well with her 2 step, she needed 8L on exertion, only walked 15 feet she was stable on 2L at rest she is upset, wants to go home, the room is cold, tired of being here I assured her I want to get her home as well, she is just requiring too much oxygen on exertion, would hate for her to come back I called her daughter to update her reviewed labs, Cr and electrolytes stable Review of Systems Review of Systems: All systems reviewed & are unremarkable except as noted in Subjective Constitutional: no fever, no fatigue and no weakness Respiratory: + dyspnea on exertion; no cough and no dyspnea Cardiovascular: no chest pain Gastrointestinal: no abdominal pain, no nausea, no vomiting, no constipation and no diarrhea/loose stools Physical Exam Physical Exam: General: well developed, obese female, mild distress Neck: supple, trachea midline, normal thyroid Lungs: clear to auscultation bilaterally, normal effort, no accessory muscle use, speaking in full sentences Heart: regular S1 and S2, no murmur, peripheral pulses normal, capillary refill normal, no edema Abdomen: soft, NT, ND, + BS, no hepatomegaly, normal to percussion Extremities: normal in appearance, no cyanosis, no petechiae, strength is 5/5 bilaterally Neuro: awake, cooperative, moves all extremities, no focal motor deficits, CN II-XII intact, sensation in extremities intact, normal speech Skin: warm, dry, no rash, normal turgor Psych: Awake, alert oriented x 3, euthymic affect Results & Data Results & Data ([facility]) Vital Signs (Past 12 Hours) Vital Signs Temp Pulse Pulse Pulse Pulse Pulse Pulse 04/21/21 09:35 90 116 H 108 H 95 H 99 H 115 H 04/21/21 07:23 37.0 C 04/21/21 04:30 36.8 C 04/20/21 23:10 36.6 C Pulse Pulse Pulse Pulse Resp Resp Resp 04/21/21 09:35 72 89 20 26 H 04/21/21 07:23 60 16 04/21/21 04:30 59 L 16 04/20/21 23:10 65 19 Resp Resp Resp Resp Resp Resp BP 04/21/21 09:35 28 H 25 H 30 H 26 H 20 20 04/21/21 07:23 103/60 04/21/21 04:30 04/20/21 23:10 BP Pulse Ox Pulse Ox Pulse Ox Pulse Ox Pulse Ox Pulse Ox 04/21/21 09:35 91 83 L 85 L 90 84 L 04/21/21 07:23 92 04/21/21 04:30 108/66 91 04/20/21 23:10 109/54 L 98 Pulse Ox Pulse Ox Pulse Ox 04/21/21 09:35 83 L 96 86 L 04/21/21 07:23 04/21/21 04:30 04/20/21 23:10 Laboratory Results Laboratory Results - last 24 hr 04/21/21 05:44 Sodium 132 L Potassium 4.1 Chloride 102 Carbon Dioxide 27 Anion Gap 3 BUN 31 H Creatinine 1.12 Est Cr Clr Drug Dosing 51.5 Est GFR ( Amer) 56.0 Est GFR (Non-Af Amer) 48.4 BUN/Creatinine Ratio 27.7 H Glucose 80 Calcium 8.0 L Medications Administered Current Inpatient Medications Acetaminophen (Acetaminophen 325 Mg Tab) 650 mg PO Q4H PRN PRN Reason: Pain or Fever Stop: 05/07/21 21:06 Last Admin: 04/19/21 19:53 Dose: 650 mg Documented by: Baricitinib (4mg Daily X 14 Days (Egfr >60 Ml/Min/1.73m2)) 4 mg PO DAILY [facility]; Protocol Stop: 04/23/21 11:59 Last Admin: 04/21/21 08:27 Dose: 4 mg Documented by: Colestipol HCl (Colestipol Hcl 1 Gm Tab) 1 gm PO BID@1000,2200 [facility] Stop: 05/15/21 09:59 Last Admin: 04/21/21 10:03 Dose: 1 gm Documented by: Diclofenac Sodium (Diclofenac Sod 1% Gel 100 Gm Tube) 4 gm EXT QID [facility] Stop: 05/12/21 08:59 Last Admin: 04/21/21 08:27 Dose: Not Given Documented by: Enoxaparin Sodium (Enoxaparin Inj 40 Mg/0.4 Ml Syr) 40 mg SQ BID [facility] Stop: 05/09/21 08:59 Last Admin: 04/21/21 10:03 Dose: 40 mg Documented by: Famotidine (Famotidine 20 Mg Tab) 20 mg PO BID [facility] Stop: 05/08/21 09:44 Last Admin: 04/21/21 08:16 Dose: 20 mg Documented by: Furosemide (Furosemide 40 Mg Tab) 40 mg PO Q48H [facility] Stop: 05/23/21 08:59 Guaifenesin/Codeine Phosphate (Guaifenesin/Codeine 100mg/10mg 5ml Udc) 5 ml PO Q6H PRN PRN Reason: Cough Stop: 05/09/21 12:39 Lactobacillus Acidoph/Casei/Rhamnos (Advanced Probiotic 1250 Mg Capsule) 2 cap PO DAILY [facility] Stop: 05/12/21 08:59 Last Admin: 04/21/21 08:16 Dose: 2 cap Documented by: Lisinopril (Lisinopril 20 Mg Tab) 20 mg PO QAM [facility] Stop: 05/13/21 08:59 Last Admin: 04/21/21 08:16 Dose: 20 mg Documented by: Loperamide HCl (Loperamide Hcl 2 Mg Cap) 2 mg PO Q4H PRN PRN Reason: diarrhea Stop: 05/16/21 13:34 Miconazole Nitrate (Miconazole Nitrate Powder 43 Gm) 1 appln EXT BID PRN PRN Reason: Affected Skin Folds Stop: 05/08/21 16:29 Mupirocin (Mupirocin 2% Oint 22 Gm Tube) 1 appln EXT BID [facility] Stop: 05/10/21 10:29 Last Admin: 04/21/21 10:03 Dose: 1 appln Documented by: Ondansetron HCl (Ondansetron Inj 2 Mg/Ml 2 Ml Vial) 4 mg IV Q6H PRN PRN Reason: Nausea Stop: 05/07/21 21:06 Sodium Chloride (Sodium Chloride 0.65% Na Soln 45 Ml ([place])) 1 sprays NA Q1H PRN PRN Reason: Dryness Stop: 05/10/21 10:22 PG Care Time/CCT Total # of Minutes Spent Total Time Spent: 32 Total Time Spent with Patient: Total time spent is greater than 50% in coordination of care (as documented) at patient's floor/unit and/or counseling patient: Coding Level of Care Code 59335 Subseq Hosp Care Lvl 3 (25 - SIGNIFICANT, SEPARATELY IDENTIFIABLE ) Diagnoses Acute respiratory failure with hypoxia J96.01 2019 novel coronavirus-infected pneumonia (NCIP) U07.1; J12.82 Acute diastolic (congestive) heart failure I50.31 HTN (hypertension) I10 LORI (acute kidney injury) N17.9 Morbid obesity with BMI of 40.0-44.9, adult E66.01; Z68.41 Elevated AST (SGOT) R74.01 Leukopenia D72.819 UTI (urinary tract infection) N39.0 DVT prophylaxis Z29.9 Physical deconditioning R53.81 Diarrhea R19.7
[2021-04-22 07:13] LABS: Creatinine Clr Calc Pharmacy 57.7 ml/min; Est GFR (African American) 64.3 ml/min; Est GFR (Non-African American) 55.5 ml/min
[2021-04-22] MEDS: FAMOTIDINE 20 MG TAB PO SCH ×2 (08:03→21:39)
[2021-04-22] MEDS: lisinopril 20 MG TAB PO SCH (08:04)
[2021-04-22] MEDS: MUPIROCIN 2% OINT 22 GM TUBE EXT SCH ×2 (08:04→21:39)
[2021-04-22] MEDS: ADVANCED PROBIOTIC 1250 MG CAPSULE PO SCH (08:04)
[2021-04-22] MEDS: DICLOFENAC SOD 1% GEL 100 GM TUBE EXT SCH ×4 (08:05→21:38)
[2021-04-22] MEDS: ENOXAPARIN INJ 40 MG/0.4 ML SYR SQ SCH ×2 (08:06→21:39)
[2021-04-22] MEDS ORDERED: BARICITINIB 2 MG TAB PO SCH (09:00)
[2021-04-22] MEDS: COLESTIPOL HCL 1 GM TAB PO SCH ×2 (10:34→23:42)
--- NOTE | 2021-04-22 12:24 | Hospitalist Progress Note ---
Date of Service April 22, 2021 Assessment & Plan (1) Acute respiratory failure with hypoxia: Plan: markedly improved the past 24 hours, down to 4L this morning, saturations 95%, keep turning her down goal is 88-90%, want to limit FiO2 to only what is necessary 2nd COVID- pneumonia. Complicated by acute diastolic CHF. Could have had mild ARDS as well. completed 10 days of dexamethasone on 04/16 Continue baricitinib 4mg daily. Day #14 today, stop after today continue Lasix 40mg PO, but decrease frequency to every other day, next dose on 04/23 Echo with preserved EF with diastolic dysfunction grade 1. Cont wall-mounted high-flow. 2L today did not do well on exertion on 04/21, required 8L, she is deconditioned hold on discharge, try again tomorrow if she is stronger told her to be OOB in chair, use incentive spirometer as much as she can, take deep breaths Dopplers of legs : negative for DVT. (2) 2019 novel coronavirus-infected pneumonia (NCIP): Plan: severe disease, with marked elevation of CRP (>20) early in admission, and diffuse pneumonia clinically & radiographically. progressed from NC O2 up to large quantities of high-flow NC last week/weekend, then needed BIPAP on 04/12/21. transferred to [facility] COVID unit 04/12 because of clinical worsening. fortunately she has improved through the week with diuresis suggesting an element of acute diastolic CHF in addition to her pneumonia. completed 10 days of IV dexamethasone 6mg daily completed 5-day course of Remdesivir. completed 14 days of Baricitinib on 04/22 DVT proph - lovenox 40mg BID. CRP is < 0.5 on 04/19 (3) Acute diastolic (congestive) heart failure: Plan: examines euvolemic, continue Lasix 40mg PO every other day Echo this admission with hyperdynamic EF; grade 1 diastolic dysfunction. BMP shows K and Cr stable (4) HTN (hypertension): Plan: BP stable continue Lisinopril (5) LORI (acute kidney injury): Plan: resolved. BMP every other day (6) Morbid obesity with BMI of 40.0-44.9, adult: Plan: BMI 41 (7) Elevated AST (SGOT): Plan: 2nd COVID-19 infection. resolved. (8) Leukopenia: Plan: 2nd COVID-19 infection w/ resulting bone marrow suppression. resolved. (9) UTI (urinary tract infection): Plan: 2nd e.coli completed a course of IV rocephin then PO augmentin for total of 7 days of Rx abx are finished (10) DVT prophylaxis: Plan: cont lovenox 40mg BID. would recommend 30 days of Xarelto 10mg daily post-d/c for prophylaxis. (11) Physical deconditioning: Plan: cont PT, OT on 04/20 she did fairly well, would recommend home health, home therapy she walked 30 feet without assist device 04/21 she only walked 15 feet with two step, got very short of breath, needed 8L (12) Diarrhea: Plan: acute/chronic c diff negative obtained KUB - no significant stool load allow loperamide prn. Plan: medical status work with therapy try to get home in next few days Admission and Anticipated Discharge Date Admission Date: April 07, 2021 Subjective patient doing okay, she was moved to room 306, out of precautions now, happy she can have visitors he continues to eat well, no BM today, making urine, held Lasix this morning no fever/chills, no cough she still feels weak, encouraged her to be OOB to chair as much as possible, use incentive spirometer to take deep breaths Review of Systems Review of Systems: All systems reviewed & are unremarkable except as noted in Subjective Respiratory: + dyspnea on exertion; no dyspnea Cardiovascular: no chest pain Physical Exam Physical Exam: General: well developed, obese female, mild distress Neck: supple, trachea midline, normal thyroid Lungs: clear to auscultation bilaterally, normal effort, no accessory muscle use, speaking in full sentences Heart: regular S1 and S2, no murmur, peripheral pulses normal, capillary refill normal, no edema Abdomen: soft, NT, ND, + BS, no hepatomegaly, normal to percussion Extremities: normal in appearance, no cyanosis, no petechiae, strength is 5/5 bilaterally Neuro: awake, cooperative, moves all extremities, no focal motor deficits, CN II-XII intact, sensation in extremities intact, normal speech Skin: warm, dry, no rash, normal turgor Psych: Awake, alert oriented x 3, euthymic affect Results & Data Results & Data ([facility]) Vital Signs (Past 12 Hours) Vital Signs Temp Pulse Pulse Resp BP Pulse Ox 04/22/21 11:00 36.6 C 67 20 91/61 L 95 04/22/21 09:20 94 04/22/21 08:19 36.5 C 77 20 107/69 94 Laboratory Results Laboratory Results - last 24 hr 04/22/21 06:13 Creatinine 1.00 Est Cr Clr Drug Dosing 57.7 Est GFR ( Amer) 64.3 Est GFR (Non-Af Amer) 55.5 Medications Administered Current Inpatient Medications Acetaminophen (Acetaminophen 325 Mg Tab) 650 mg PO Q4H PRN PRN Reason: Pain or Fever Stop: 05/07/21 21:06 Last Admin: 04/19/21 19:53 Dose: 650 mg Documented by: Baricitinib (Baricitinib 2 Mg Tab) 2 mg PO DAILY [facility]; Protocol Stop: 04/22/21 23:59 Last Admin: 04/22/21 09:01 Dose: 2 mg Documented by: Colestipol HCl (Colestipol Hcl 1 Gm Tab) 1 gm PO BID@1000,2200 [facility] Stop: 05/15/21 09:59 Last Admin: 04/22/21 10:34 Dose: 1 gm Documented by: Diclofenac Sodium (Diclofenac Sod 1% Gel 100 Gm Tube) 4 gm EXT QID [facility] Stop: 05/12/21 08:59 Last Admin: 04/22/21 11:57 Dose: Not Given Documented by: Enoxaparin Sodium (Enoxaparin Inj 40 Mg/0.4 Ml Syr) 40 mg SQ BID [facility] Stop: 05/09/21 08:59 Last Admin: 04/22/21 08:06 Dose: 40 mg Documented by: Famotidine (Famotidine 20 Mg Tab) 20 mg PO BID [facility] Stop: 05/08/21 09:44 Last Admin: 04/22/21 08:03 Dose: 20 mg Documented by: Furosemide (Furosemide 40 Mg Tab) 40 mg PO Q48H [facility] Stop: 05/23/21 08:59 Guaifenesin/Codeine Phosphate (Guaifenesin/Codeine 100mg/10mg 5ml Udc) 5 ml PO Q6H PRN PRN Reason: Cough Stop: 05/09/21 12:39 Lactobacillus Acidoph/Casei/Rhamnos (Advanced Probiotic 1250 Mg Capsule) 2 cap PO DAILY [facility] Stop: 05/12/21 08:59 Last Admin: 04/22/21 08:04 Dose: 2 cap Documented by: Lisinopril (Lisinopril 20 Mg Tab) 20 mg PO QAM [facility] Stop: 05/13/21 08:59 Last Admin: 04/22/21 08:04 Dose: 20 mg Documented by: Loperamide HCl (Loperamide Hcl 2 Mg Cap) 2 mg PO Q4H PRN PRN Reason: diarrhea Stop: 05/16/21 13:34 Miconazole Nitrate (Miconazole Nitrate Powder 43 Gm) 1 appln EXT BID PRN PRN Reason: Affected Skin Folds Stop: 05/08/21 16:29 Mupirocin (Mupirocin 2% Oint 22 Gm Tube) 1 appln EXT BID [facility] Stop: 05/10/21 10:29 Last Admin: 04/22/21 08:04 Dose: 1 appln Documented by: Ondansetron HCl (Ondansetron Inj 2 Mg/Ml 2 Ml Vial) 4 mg IV Q6H PRN PRN Reason: Nausea Stop: 05/07/21 21:06 Sodium Chloride (Sodium Chloride 0.65% Na Soln 45 Ml ([place])) 1 sprays NA Q1H PRN PRN Reason: Dryness Stop: 05/10/21 10:22 PG Care Time/CCT Total # of Minutes Spent Total Time Spent with Patient: Total time spent is greater than 50% in coordination of care (as documented) at patient's floor/unit and/or counseling patient: Coding Level of Care Code 69992 Subseq Hosp Care Lvl 2 Diagnoses Acute respiratory failure with hypoxia J96.01 2019 novel coronavirus-infected pneumonia (NCIP) U07.1; J12.82 Acute diastolic (congestive) heart failure I50.31 HTN (hypertension) I10 LORI (acute kidney injury) N17.9 Morbid obesity with BMI of 40.0-44.9, adult E66.01; Z68.41 Elevated AST (SGOT) R74.01 Leukopenia D72.819 UTI (urinary tract infection) N39.0 DVT prophylaxis Z29.9 Physical deconditioning R53.81 Diarrhea R19.7
[2021-04-23 06:43] LABS: Est GFR (Non-African American) 53.5 ml/min
[2021-04-23] MEDS: FAMOTIDINE 20 MG TAB PO SCH (08:26)
[2021-04-23] MEDS: lisinopril 20 MG TAB PO SCH (08:26)
[2021-04-23] MEDS: DICLOFENAC SOD 1% GEL 100 GM TUBE EXT SCH ×3 (08:26→15:55)
[2021-04-23] MEDS: MUPIROCIN 2% OINT 22 GM TUBE EXT SCH (08:26)
[2021-04-23] MEDS: ADVANCED PROBIOTIC 1250 MG CAPSULE PO SCH (08:26)
[2021-04-23] MEDS: ENOXAPARIN INJ 40 MG/0.4 ML SYR SQ SCH (08:26)
[2021-04-23] MEDS ORDERED: FUROSEMIDE 40 MG TAB PO SCH (09:00)
[2021-04-23] MEDS: COLESTIPOL HCL 1 GM TAB PO SCH (09:51)
[2021-04-23] MEDS ORDERED: SODIUM CHLORIDE 0.65% NA SOLN 45 ML (OCEAN) ONE (11:53)
--- NOTE | 2021-04-30 10:22 | Discharge Summary ---
Date of Service April 23, 2021 Admission HPI Per Admitting Provider This is a 75-year-old female with past medical history of hypertension that presents today complaining weakness shortness of breath. Patient is a good historian but she appears very fatigued and a little short of breath which limits history. Patient tells me that on 04/04, she started having some flulike symptoms. These included generalized myalgias and weakness. She had little appetite. She did have some mild cough. Her daughter brought her to urgent care where she was found to be Covid positive. She tells me that no other treatment was prescribed and the patient stayed home over the next 2 days. Unfortunately, symptoms continue to worsen. This morning, she woke up and was extremely weak and had worsening shortness of breath. At that point EMS was called and the patient was brought to the emergency room for further evaluation. Patient is Covid positive here in the ER. She admits to me that she is unvaccinated. Recorded vital signs appear to be stable the patient is afebrile. She is noted to be 93% on 3L presentation. Patient is now being admitted for further treatment of Covid pneumonia. Principal Diagnosis COVID 19 pneumonia Discharge Exam General: well developed, obese female, mild distress Neck: supple, trachea midline, normal thyroid Lungs: clear to auscultation bilaterally, normal effort, no accessory muscle use, speaking in full sentences Heart: regular S1 and S2, no murmur, peripheral pulses normal, capillary refill normal, no edema Abdomen: soft, NT, ND, + BS, no hepatomegaly, normal to percussion Extremities: normal in appearance, no cyanosis, no petechiae, strength is 5/5 bilaterally Neuro: awake, cooperative, moves all extremities, no focal motor deficits, CN II-XII intact, sensation in extremities intact, normal speech Skin: warm, dry, no rash, normal turgor Psych: Awake, alert oriented x 3, euthymic affect Discharge Data Allergies Allergy/AdvReac Type Severity Reaction Status Date / Time No Known Allergies Allergy Unverified 04/07/21 17:46 Consultations 04/07/21 17:42 ED Decision to Admit Stat Ordered Studies 04/12/21 12:09 US venous doppler LE JORY Routine Hospital Course (1) Acute respiratory failure with hypoxia: markedly improved the past 24 hours, down to 4L this morning, saturations 95%, keep turning her down goal is 88-90%, want to limit FiO2 to only what is necessary 2nd COVID-19 pneumonia. Complicated by acute diastolic CHF. Could have had mild ARDS as well. completed 10 days of dexamethasone on 04/16 Continue baricitinib 4mg daily. completed #14 days Echo with preserved EF with diastolic dysfunction grade 1. 2 step on day of discharge, stable on room air at rest, needed 4L on exertion home oxygen arranged Dopplers of legs : negative for DVT. send home on short course of Xarelto 10mg daily to prevent VTE (2) 2018 novel coronavirus-infected pneumonia (NCIP): severe disease, with marked elevation of CRP (>20) early in admission, and diffuse pneumonia clinically & radiographically. progressed from NC O2 up to large quantities of high-flow NC last week/weekend, then needed BIPAP on 04/12/21. [facility] because of clinical worsening. fortunately she has improved through the week with diuresis suggesting an element of acute diastolic CHF in addition to her pneumonia. completed 10 days of IV dexamethasone 6mg daily completed 5-day course of Remdesivir. completed 14 days of Baricitinib on 04/22 DVT proph - lovenox 40mg BID. CRP is < 0.5 on 04/19 (3) Acute diastolic (congestive) heart failure: examines euvolemic, continue Lasix 40mg PO every other day Echo this admission with hyperdynamic EF; grade 1 diastolic dysfunction. BMP shows K and Cr stable (4) HTN (hypertension): BP stable continue Lisinopril (5) LORI (acute kidney injury): resolved. BMP every other day (6) Morbid obesity with BMI of 40.0-44.9, adult: BMI 41 (7) Elevated AST (SGOT): 2nd COVID-19 infection. resolved. (8) Leukopenia: 2nd COVID-19 infection w/ resulting bone marrow suppression. resolved. (9) UTI (urinary tract infection): 2nd e.coli completed a course of IV rocephin then PO augmentin for total of 7 days of Rx abx are finished (10) DVT prophylaxis: cont lovenox 40mg BID. would recommend Xarelto 10mg daily post-d/c for prophylaxis. (11) Physical deconditioning: cont PT, OT getting stronger, arrange for home health (12) Diarrhea: resolved discharge to home with home health I certify that this patient is under my care and that I, or a physicians chemical laboratory assistant working with me, had a face to-face encounter that meets the home health [id number] encounter requirements with this patient. The encounter with the patient was in whole, or in part, for the following medical condition, which is the primary reason for home health care (list medical condition): nursing/PT/OT I certify that, based on my findings, the following services are medically nec jessi home health services: My clinical findings support the need for the above services because: Caregiver Instruct Med Mgmt, Safety, Disease Process, Signs to Report Daily Weights Home Safety Assessment Hydration / Nutrition Medication Compliance and Monitoring Effective of New Medications Medication Compliance OT Assess ADL Status and Restore Function w ADLs Oxygen Safety and Management PT Assessment for Endurance / Balance / Strength Skilled Nsg Assess Pt Illness, Disease and Sx Monitoring S/S to Report to Provider Teach on Disease Management and Interventions Vital Signs Further, I certify that my clinical findings support that this patient is homebound (i.e. absences from home require considerable and taxing effort and are for medical reasons or buddhist services or infrequently or of short duration when for other reasons) because: Assistance of 1 Person for Ambulation/Activities Certification for Home Health Services: Based on the above findings, I certify that this patient is confined to the home and needs intermittent intermediate care, physical therapy and/or speech therapy or continues to need occupational therapy. The patient is under my care, and I have initiated the establishment of the plan of care. This patient will be followed by a physician who will periodically review the plan of care. Total Time Total Time Spent Total Time Spent (In Minutes): 38 minutes Discharge Plan Discharge Items Patient Disposition: Home - Home Health Services Reason For Visit: COVID Discharge Diagnosis: COVID 19 pneumonia Acute hypoxic respiratory failure Condition on Discharge: Good Goals: improve strength and mobility wean off oxygen Activity: Resume your previous activity Weightbearing: Full weightbearing Non-emergency contact: Primary Care Provider Call non-emergency contact if: you have any medication questions and your symptoms worsen Follow-up/Referrals: Patricia Tony C.R.N.P. [Primary Care Provider] - 04/26/21 8:15 am (one week) Diet: Regular Addtl Attending Provider Instructions: Medications: - XARELTO: 10mg daily for 14 days to prevent blood clots in recovery time frame typically we give for 30 days but you have been in the hospital so long on Lovenox, so shorter duration should be sufficient COVID 19 pneumonia, acute hypoxic respiratory failure completed full course of dexamethasone, baricitinib, antibiotics for UTI we have weaned back oxygen a lot over the past week continue to use oxygen at home, wean back as tolerated oxygen saturation goal is 90% both at rest and when exerting yourself be sure to spend a lot of time fully upright in a chair, take deep breaths stay well nourished will arrange for home health, home therapy to improve your strength Pending Studies at Discharge: No Stand-Alone Forms: My [facility] [employer], Smoking Cessation Medications and DC Order Prescriptions: New Xarelto 10 mg tablet 10 mg PO DAILY Qty: 14 RF: 0 Continued lisinopril-hydrochlorothiazide 20-12.5 mg tablet 1 tab PO BID RF: 0 Discharge Orders: Discharge Order (Routine); Ordered 04/23/21 Ordered By: Heriberto Sosa Admission Data Admit Date/Time: 04/07/21 18:09 Attending Provider: Heriberto Sosa Admit Provider: Ho Dominguez Primary Care Provider: Patricia Tony Other Providers: Ho Dominguez ; Neo Marquez [facility] Other Interventions: Discharge Summary Assessment (RN) Last Done: 04/23/21 15:47 Coding Level of Care Code D/C DAY MANAGEMENT >30 MINS Diagnoses Acute respiratory failure with hypoxia J96.01 2019 novel coronavirus-infected pneumonia (NCIP) U07.1; J12.82 Acute diastolic (congestive) heart failure I50.31 HTN (hypertension) I10 LORI (acute kidney injury) N17.9 Morbid obesity with BMI of 40.0-44.9, adult E66.01; Z68.41 Elevated AST (SGOT) R74.01 Leukopenia D72.819 UTI (urinary tract infection) N39.0 DVT prophylaxis Z29.9 Physical deconditioning R53.81 Diarrhea R19.7
== END 2021-04-23 18:57 | disposition home health service (06) | DRG 177 ==
LOC: ED 15:42 → 2W 18:09 → SUATTDRO 18:09 → 2W 20:14 → 2E 04-12 14:20 → 2W 04-21 21:43 → 3E 04-22 11:04